=== PATIENT | male | born 1935 | race Caucasian/White ===

== ENCOUNTER 2017-01-31 13:32 | Emergency (ER) | payer MEDICARE, BC ==
[2017-01-31 13:47] VITALS: BP 164/86
--- NOTE | 2017-01-31 14:11 | ER Document Report ---
ED Medical Screen (RME) - General Chief Complaint: Fall Stated Complaint: FALL, HEAD INJURY Time Seen by Provider: 01/31/17 13:53 Mode of Arrival: Wheelchair Information source: Patient Notes: This is an 81-year-old man accompanied by his who is brought to the emergency room after falling and hitting his head at noon at home. Only ambulates with a Rollator and fell backwards. He denies any loss of consciousness. He was able to be helped back to the Rollator and was able to bear weight with a Rollator after the fall. He presents because of a contusion to the back of the head. He does state he is feeling better than he felt when he fell. He denies any headache at this time. He does have a history of subdural hematoma and has had a craniotomy in the past. TRAVEL OUTSIDE OF THE [place] IN LAST 30 DAYS: No - Related Data Allergies/Adverse Reactions: Sulfa (Sulfonamide Antibiotics) Allergy (Intermediate, Verified 06/09/12 18:23) Chest pain Past Medical History - Social History Chew tobacco use (# tins/day): No Frequency of alcohol use: None Drug Abuse: None - Past Medical History Cardiac Medical History: Reports: Hx Hypercholesterolemia, Hx Hypertension Denies: Hx Heart Attack Pulmonary Medical History: Denies: Hx Asthma Neurological Medical History: Denies: Hx Cerebrovascular Accident, Hx Seizures Renal/ Medical History: Denies: Hx Peritoneal Dialysis GI Medical History: Reports: Hx Crohn's Disease, Hx Gastroesophageal Reflux Disease. Denies: Hx Hepatitis, Hx Hiatal Hernia, Hx Ulcer Infectious Medical History: Denies: Hx Hepatitis Past Surgical History: Reports: Hx Neurologic Surgery, Hx Orthopedic Surgery - laminectomy,. Denies: Hx Open Heart Surgery, Hx Pacemaker - Immunizations Hx Diphtheria, Pertussis, Tetanus Vaccination: Yes History of Influenza Vaccine for 01/2017 - 06/2017 Season: No Physical Exam - Vital signs Vitals: Temp Pulse Resp BP Pulse Ox 97.8 F 75 16 164/86 H 98 01/31/17 13:46 01/31/17 13:46 01/31/17 13:46 01/31/17 13:46 01/31/17 13:46 Course - Vital Signs Vital signs: Temp Pulse Resp BP Pulse Ox 97.8 F 75 16 164/86 H 98 01/31/17 13:46 01/31/17 13:46 01/31/17 13:46 01/31/17 13:46 01/31/17 13:46
--- NOTE | 2017-01-31 14:43 | RADIOLOGY REPORT (SQ) ---
EXAM DESCRIPTION: CT HEAD WITHOUT COMPLETED DATE/TIME: 01/31/2017 2:26 pm REASON FOR STUDY: cedric villegas head COMPARISON: 06/15/2015 TECHNIQUE: Axial images acquired through the brain without intravenous contrast. Images reviewed wi th bone, brain and subdural windows. Images stored on PACS. All CT scanners at this facility use dose modulation, iterative reconstruction, and/or weight based d osing when appropriate to reduce radiation dose to as low as reasonably achievable (ALARA). [facility]: Dose Right [facility]: CareDose [facility]: Dose Right [facility]: Teradose 4D [facility]: Smart [employer] RADIATION DOSE: Up-to-date CT equipment and radiation dose reduction techniques were employed. CTDIv ol: 64.6 mGy. DLP: 1163 mGy-cm.mGy. LIMITATIONS: Motion. FINDINGS: VENTRICLES: Prominent. CEREBRUM: No masses. No hemorrhage. No midline shift. Encephalomalacia adjacent to right frontal c raniotomy, stable. Areas of low density in the white matter most likely due to chronic micro-vascula r ischemic change. No evidence for acute infarction. CEREBELLUM: No masses. No hemorrhage. No alteration of density. No evidence for acute infarction. EXTRAAXIAL SPACES: Age-related involutional change. No fluid collections. No masses. ORBITS AND GLOBE: No intra- or extraconal masses. Normal contour of globe without masses. CALVARIUM: Right frontal craniotomy. PARANASAL SINUSES: No fluid or mucosal thickening. SOFT TISSUES: No mass or hematoma. OTHER: No other significant finding. IMPRESSION: Stable, chronic changes. EVIDENCE OF ACUTE STROKE: NO. TECHNICAL DOCUMENTATION: JOB ID: [id number] Quality ID # [id number]: Final reports with documentation of one or more dose reduction techniques (e.g., Au tomated exposure control, adjustment of the mA and/or kV according to patient size, use of iterative reconstruction technique) 2010 [employer]- All Rights Reserved
--- NOTE | 2017-01-31 14:45 | RADIOLOGY REPORT (SQ) ---
EXAM DESCRIPTION: CT CERVICAL SPINE WITHOUT COMPLETED DATE/TIME: 01/31/2017 2:26 pm REASON FOR STUDY: fell hit head COMPARISON: None. TECHNIQUE: Axial images acquired through the cervical spine without intravenous contrast. Images re viewed with lung, soft tissue and bone windows. Reconstructed coronal and sagittal MPR images review ed. Images stored on PACS. All CT scanners at this facility use dose modulation, iterative reconstruction, and/or weight based d osing when appropriate to reduce radiation dose to as low as reasonably achievable (ALARA). [facility]: Dose Right [facility]: CareDose [facility]: Dose Right [facility]: Teradose 4D [facility]: Smart [employer] RADIATION DOSE: Up-to-date CT equipment and radiation dose reduction techniques were employed. CTDIv ol: 16.7 mGy. DLP: 298 mGy-cm. mGy. LIMITATIONS: Motion. FINDINGS: ALIGNMENT: Anatomic. MINERALIZATION: Normal. VERTEBRAL BODIES: Defects in the posterior arches of C1 and C2 and the foramen magnum. DISCS: Multilevel disc space narrowing with osteophytes. FACETS, LATERAL MASSES, POSTERIOR ELEMENTS: Facet arthropathy. No fractures. No dislocation. No ac [place] findings. HARDWARE: None in the spine. VISUALIZED RIBS: No fractures. LUNG APICES AND SOFT TISSUES: No significant or acute findings. OTHER: No other significant finding. IMPRESSION: Chronic postsurgical and degenerative changes. TECHNICAL DOCUMENTATION: JOB ID: [id number] Quality ID # [id number]: Final reports with documentation of one or more dose reduction techniques (e.g., Au tomated exposure control, adjustment of the mA and/or kV according to patient size, use of iterative reconstruction technique) 2010 [employer]- All Rights Reserved
--- NOTE | 2017-01-31 15:36 | RADIOLOGY REPORT (SQ) ---
EXAM DESCRIPTION: SHOULDER RIGHT 2 OR MORE VIEWS COMPLETED DATE/TIME: 01/31/2017 3:26 pm REASON FOR STUDY: right shoulder pain s/p fall COMPARISON: 06/15/2015 NUMBER OF VIEWS: Three views. TECHNIQUE: Internal rotation, external rotation, and Y view images acquired of the right shoulder. LIMITATIONS: None. FINDINGS: MINERALIZATION: Osteopenia. BONES: Old fracture of the clavicle. No acute fracture or dislocation. No worrisome bone lesions. JOINTS: No dislocation. VISUALIZED LUNGS AND RIBS: No pneumothorax. No rib fracture. SOFT TISSUES: No radiopaque foreign body. OTHER: No other significant finding. IMPRESSION: NO RADIOGRAPHIC EVIDENCE OF ACUTE INJURY. TECHNICAL DOCUMENTATION: JOB ID: [id number] [employer]- All Rights Reserved
--- NOTE | 2017-01-31 15:59 | ER Document Report ---
ED General - General Chief Complaint: Fall Stated Complaint: FALL, HEAD INJURY Time Seen by Provider: 01/31/17 13:53 Mode of Arrival: Wheelchair Information source: Patient, Relative Notes: This is an 81-year-old man with a history of a subdural hematoma in the past, neck surgery in the past, ambulates with a Rollator and assistance. He presented to the emergency room after a fall at noon today. Patient did fall back after losing his balance and hit his head. There was no loss of consciousness. Patient states he actually feels better and denies headache at this time. TRAVEL OUTSIDE OF THE [place] IN LAST 30 DAYS: No - HPI Onset: This afternoon Onset/Duration: Sudden Quality of pain: No pain Severity: None Pain Level: Denies Associated symptoms: denies: Chills, Fever Relieved by: Denies - Related Data Allergies/Adverse Reactions: Sulfa (Sulfonamide Antibiotics) Allergy (Intermediate, Verified 06/09/12 18:23) Chest pain Past Medical History - General Information source: Patient - Social History Smoking Status: Never Smoker Chew tobacco use (# tins/day): No Frequency of alcohol use: None Drug Abuse: None Family History: Reviewed & Not Pertinent Patient has suicidal ideation: No - Past Medical History Cardiac Medical History: Reports: Hx Hypercholesterolemia, Hx Hypertension Denies: Hx Heart Attack Pulmonary Medical History: Denies: Hx Asthma Neurological Medical History: Denies: Hx Cerebrovascular Accident, Hx Seizures Renal/ Medical History: Denies: Hx Peritoneal Dialysis GI Medical History: Reports: Hx Crohn's Disease, Hx Gastroesophageal Reflux Disease. Denies: Hx Hepatitis, Hx Hiatal Hernia, Hx Ulcer Infectious Medical History: Denies: Hx Hepatitis Past Surgical History: Reports: Hx Neurologic Surgery, Hx Orthopedic Surgery - laminectomy,. Denies: Hx Open Heart Surgery, Hx Pacemaker - Immunizations Hx Diphtheria, Pertussis, Tetanus Vaccination: Yes Review of Systems - Review of Systems Constitutional: No symptoms reported EENT: No symptoms reported Cardiovascular: No symptoms reported Respiratory: No symptoms reported Gastrointestinal: No symptoms reported Genitourinary: No symptoms reported Male Genitourinary: No symptoms reported Musculoskeletal: See HPI Skin: No symptoms reported Hematologic/Lymphatic: No symptoms reported Neurological/Psychological: No symptoms reported Physical Exam - Vital signs Vitals: Temp Pulse Resp BP Pulse Ox 97.8 F 75 16 164/86 H 98 01/31/17 13:46 01/31/17 13:46 01/31/17 13:46 01/31/17 13:46 01/31/17 13:46 Notes: Physical exam: GENERAL: 81-year-old man, alert and oriented 3, no acute distress HEAD: Patient does have a contusion in the occipital area of the scalp. There is no crepitus over the bone. EYES: Chronic right lid lag. ENT: Moist mucous membranes. NECK: Patient has limited range of motion of the neck chronically after surgery , no significant tenderness. LUNGS: Breath sounds clear to auscultation bilaterally and equal. No wheezes rales or rhonchi. HEART: Regular rate and rhythm without murmurs, rubs or gallops. ABDOMEN: Soft, normoactive bowel sounds. No tenderness to palpation. No guarding, no rebound. No masses appreciated. EXTREMITIES: Patient has debilitating arthritis and has significantly reduced range of motion of all extremities. He is at his baseline. NEUROLOGICAL: Cranial nerves II through XII grossly intact. Normal speech, moving all extremities. His mentation is quite clear. PSYCH: Normal mood, normal affect. SKIN: Contusion is noted to the scalp. Course - Re-evaluation Re-evalutation: 01/31/17 16:22 Patient looks good and was without complaints. He is a fall risk. I have spoken to the family and the patient detail. He would like to go home. I did let them know that there is a chance of delayed bleeding (there always is after this type of injury) and I have encouraged them that if there is any concerns for headache or changes in mental status, to return to the emergency room at once. - Vital Signs Vital signs: Temp Pulse Resp BP Pulse Ox 97.8 F 75 16 164/86 H 98 01/31/17 13:46 01/31/17 13:46 01/31/17 13:46 01/31/17 13:46 01/31/17 13:46 - Diagnostic Test Radiology reviewed: Image reviewed, Reports reviewed - CT of the head shows no bleed. CT of the cervical spine shows no acute fracture (chronic postsurgical changes). X-rays of the shoulder show no fracture. Discharge - Discharge Clinical Impression: Contusion head, Concussion mild, Contusion to the right shoulder. Condition: Stable Disposition: HOME, SELF-CARE Additional Instructions: As we discussed, the CT of the head showed no bleed. The CT of the neck show no bony injuries. The x-rays of the shoulder showed no fracture. Take it easy over the next few days. Return to the emergency room for worsening headache, nausea or vomiting or any mental status changes. Thank you for choosing [facility] for your care. The examination and treatment you have received in the Emergency Department today has been rendered on an emergency basis only and is not intended to be a substitute for complete medical care. You should contact your follow-up physician as it is important that he or she examine you for any new or remaining problems. If given a copy of any lab tests or radiology reports, please bring them with you when you see your physician. If your problem worsens or new symptoms appear and you are unable to arrange prompt follow-up care, return to the Emergency Department. Specific signs to look out for: Worsening headache, changes in mental status Any other instructions: Continue current medicines. Return to the emergency room tomorrow if any concerns. Referrals: ALFIE HAN MD [Primary Care Provider] - Follow up as needed
== END 2017-01-31 16:10 | disposition home or self-care (01) ==
LOC: ER 13:32
DX: W19.XXXA Unspecified fall, initial encounter (principal); S00.03XA Contusion of scalp, initial encounter; S40.011A Contusion of right shoulder, initial encounter; S06.0X0A Concussion without loss of consciousness, initial encounter; Z88.2 Allergy status to sulfonamides; I10 Essential (primary) hypertension; M19.90 Unspecified osteoarthritis, unspecified site
CPT/HCPCS: 70450; 72125; 99284

== ENCOUNTER 2018-07-27 14:00 | Emergency (ER) | payer MEDICARE, BC ==
[2018-07-27 14:19] VITALS: BP 116/96
--- NOTE | 2018-07-27 15:27 | ER Document Report ---
ED Medical Screen (RME) - General Chief Complaint: Urinary Problem Stated Complaint: PAINFUL URINATION,URGENCY Time Seen by Provider: 07/27/18 15:18 Primary Care Provider: ALFIE HAN MD [Primary Care Provider] - Follow up as needed Notes: Patient is a 83-year-old male that presents to the emergency department for chief complaint of dysuria and urinary frequency. Is been having worsening symptoms over the past several days. States she is been going more frequently 4 times at least today, usually does not go that much, he has not been drinking as much water recently, he was holding on the fluid over the past weekend, and he was given Lasix by his family, but they are worried maybe he got too dehydrated ROS: Other than noted above, the 12 point review of systems was reviewed with the patient and were negative, all pertinent findings are included in the HPI. PHYSICAL EXAMINATION: Vital signs reviewed. GENERAL: Elderly male, no acute distress HEAD: Atraumatic, normocephalic. EYES: Pupils equal round extraocular movements intact, conjunctiva are normal. ENT: Nares patent NECK: Normal range of motion CV: Heart regular rate and rhythm LUNGS: No respiratory distress Musculoskeletal: Nontender extremities NEUROLOGICAL: Normal speech PSYCH: Normal mood, normal affect. MDM: Patient seen and examined for rapid initial assessment. Vital signs reviewed. A comprehensive ED assessment and evaluation of the patient, analysis of test results and completion of the medical decision making process will be conducted by additional ED providers. *Note is created using voice recognition software and may contain spelling, syntax or grammatical errors. TRAVEL OUTSIDE OF THE [place] IN LAST 30 DAYS: No - Related Data Allergies/Adverse Reactions: Sulfa (Sulfonamide Antibiotics) Allergy (Intermediate, Verified 07/27/18 14:08) Chest pain Past Medical History - Past Medical History Cardiac Medical History: Reports: Hx Hypercholesterolemia, Hx Hypertension Denies: Hx Heart Attack Pulmonary Medical History: Denies: Hx Asthma Neurological Medical History: Denies: Hx Cerebrovascular Accident, Hx Seizures Renal/ Medical History: Denies: Hx Peritoneal Dialysis GI Medical History: Reports: Hx Crohn's Disease, Hx Gastroesophageal Reflux Disease. Denies: Hx Hepatitis, Hx Hiatal Hernia, Hx Ulcer Infectious Medical History: Denies: Hx Hepatitis Past Surgical History: Reports: Hx Neurologic Surgery, Hx Orthopedic Surgery - laminectomy,. Denies: Hx Open Heart Surgery, Hx Pacemaker - Immunizations Hx Diphtheria, Pertussis, Tetanus Vaccination: Yes History of Influenza Vaccine for 01/2017 - 06/2017 Season: No Physical Exam - Vital signs Vitals: Temp Pulse Resp BP Pulse Ox 97.7 F 68 20 116/96 H 95 07/27/18 14:18 07/27/18 14:18 07/27/18 14:18 07/27/18 14:18 07/27/18 14:18 Course - Vital Signs Vital signs: Temp Pulse Resp BP Pulse Ox 97.7 F 68 20 116/96 H 95 07/27/18 14:18 07/27/18 14:18 07/27/18 14:18 07/27/18 14:18 07/27/18 14:18 Doctor's Discharge - Discharge Referrals: ALFIE HAN MD [Primary Care Provider] - Follow up as needed
[2018-07-27 16:12] LABS: ABSOLUTE EOSINOPHILS # (AUTO) 0.1 10^3/uL (0.0-0.6); ABSOLUTE LYMPHOCYTES (AUTO) 1.4 10^3/uL (0.5-4.7); ABSOLUTE MONOCYTES (AUTO) 0.5 10^3/uL (0.1-1.4); ABSOLUTE NEUT (AUTO) 5.2 10^3/uL (1.7-8.2); BASOPHILS % (AUTO) 0.5 % (0-2); HEMATOCRIT 42.1 % (37.9-51.0); HEMOGLOBIN 13.9 g/dL (13.5-17.0); MEAN CORPUSCULAR VOLUME 88 fl (80-97); MONOCYTES % (AUTO) 6.8 % (3-13); PLATELET COUNT 188 10^3/uL (150-450); RED BLOOD COUNT 4.78 10^6/uL (4.35-5.55); RED CELL DISTRIBUTION WIDTH 15.4 % (11.5-14.0); SEGMENTED NEUTROPHILS % (AUTO) 71.7 % (42-78); TOTAL CELLS COUNTED % (AUTO) 100 %; WHITE BLOOD COUNT 7.2 10^3/uL (4.0-10.5)
[2018-07-27 16:27] LABS: ALANINE AMINOTRANSFERASE 24 U/L (21-72); ALBUMIN 4.2 g/dL (3.5-5.0); ALKALINE PHOSPHATASE 71 U/L (38-126); ANION GAP 9 (5-19); ASPARTATE AMINO TRANSFERASE 18 U/L (17-59); BILIRUBIN,TOTAL 0.4 mg/dL (0.2-1.3); BLOOD UREA NITROGEN 21 mg/dL (7-20); CALCIUM 9.4 mg/dL (8.4-10.2); CARBON DIOXIDE 30 mmol/L (22-30); CHLORIDE 101 mmol/L (98-107); GLUCOSE 85 mg/dL (75-110); POTASSIUM 4.8 mmol/L (3.6-5.0); SODIUM 139.7 mmol/L (137-145); TOTAL PROTEIN 7.5 g/dL (6.3-8.2)
[2018-07-27] MEDS ORDERED: NORMAL SALINE 1000 ML 1,000 ML IV ONE (16:53)
--- NOTE | 2018-07-27 16:54 | ER Document Report ---
ED General - General Chief Complaint: Urinary Problem Stated Complaint: PAINFUL URINATION,URGENCY Time Seen by Provider: 07/27/18 15:18 Primary Care Provider: ALFIE HAN MD [Primary Care Provider] - Follow up as needed TRAVEL OUTSIDE OF THE [place] IN LAST 30 DAYS: No - HPI Notes: Patient is a 83-year-old male that presents to the emergency department for chief complaint of urinary frequency and dysuria. Patient reports history of frequent urinary tract infections. He did complete a course of antibiotics and had reported resolution of his UTI last . He states on Tuesday he began having urinary frequency and dysuria again. He reports Azo has improved his symptoms today. He denies any associated fever, chills, nausea or vomiting. He states he has been drinking cranberry juice and water trying to stay hydrated. Patient has an appointment Tuesday with his primary care doctor but did not feel he could wait that long if he needed more antibiotics. He denies any hematuria or abdominal pain. Past Medical History: Reviewed in chart Past Surgical History: Reviewed in chart Social History: Denies drugs alcohol and tobacco Family History: Reviewed and noncontributory for presenting illness Allergies: Reviewed, see documented allergy list. REVIEW OF SYSTEMS: CONSTITUTIONAL : No fever No chills No diaphoresis No recent illness EENT: No vision changes No congestion No sore throat CARDIOVASCULAR: No chest pain No palpitations RESPIRATORY: No shortness of breath No cough No difficulty breathing GASTROINTESTINAL: No abdominal pain No nausea No vomiting No diarrhea GENITOURINARY: dysuria Urinary frequency No hematuria No difficulty urinating MUSCULOSKELETAL: No back pain No leg pain No arm pain SKIN: No rashes No lesions LYMPHATIC: No swollen, enlarged glands. NEUROLOGICAL: No lightheadedness No headache No weakness No paresthesias PSYCHIATRIC: No anxiety No depression PHYSICAL EXAMINATION: Vital signs reviewed, nursing noted reviewed. GENERAL: Well-appearing, well-nourished and in no acute distress. HEAD: Atraumatic, normocephalic. EYES: Eyes appear normal, extraocular movements intact, sclera anicteric, conjunctiva are normal. ENT: nares patent, oropharynx clear without exudates. Moist mucous membranes. NECK: Normal range of motion, supple without lymphadenopathy LUNGS: Breath sounds clear to auscultation bilaterally and equal. No wheezes rales or rhonchi. HEART: Regular rate and rhythm without murmurs ABDOMEN: Soft, nontender, normoactive bowel sounds. No rebound, guarding, or rigidity. No masses appreciated. EXTREMITIES: Nontender, good range of motion, no pitting or edema. NEUROLOGICAL: No focal neurological deficits. Moves all extremities spontaneousl y Motor and sensory grossly intact on exam. PSYCH: Normal mood, normal affect. SKIN: Warm, Dry, normal turgor, no rashes or lesions noted on exposed skin - Related Data Allergies/Adverse Reactions: Sulfa (Sulfonamide Antibiotics) Allergy (Intermediate, Verified 07/27/18 14:08) Chest pain Past Medical History - Social History Smoking Status: Never Smoker Family History: Reviewed & Not Pertinent Patient has suicidal ideation: No Patient has homicidal ideation: No - Past Medical History Cardiac Medical History: Reports: Hx Hypercholesterolemia, Hx Hypertension Denies: Hx Heart Attack Pulmonary Medical History: Denies: Hx Asthma Neurological Medical History: Denies: Hx Cerebrovascular Accident, Hx Seizures Renal/ Medical History: Denies: Hx Peritoneal Dialysis GI Medical History: Reports: Hx Crohn's Disease, Hx Gastroesophageal Reflux Disease. Denies: Hx Hepatitis, Hx Hiatal Hernia, Hx Ulcer Infectious Medical History: Denies: Hx Hepatitis Past Surgical History: Reports: Hx Neurologic Surgery, Hx Orthopedic Surgery - laminectomy,. Denies: Hx Open Heart Surgery, Hx Pacemaker - Immunizations Hx Diphtheria, Pertussis, Tetanus Vaccination: Yes Physical Exam - Vital signs Vitals: Temp Pulse Resp BP Pulse Ox 97.7 F 68 20 116/96 H 95 07/27/18 14:18 07/27/18 14:18 07/27/18 14:18 07/27/18 14:18 07/27/18 14:18 Course - Re-evaluation Re-evalutation: 07/27/18 16:59 Vitals reviewed. Nursing notes reviewed. Patient is well-appearing and in no acute distress. He has no leukocytosis or signs of sepsis. His BUN is slightly elevated with normal creatinine. He has no electrolyte derangement. Patient was given IV hydration. 07/27/18 17:39 Patient's urinalysis is positive for infection. He will be given a dose of IV Rocephin in the ER for the reoccurrence of his UTI and will be started on Keflex. He has an appointment on Tuesday with his PCP which he will keep for reevaluation. He will return to the emergency room think symptoms. He is stable at time of discharge. Laboratory 07/27/18 07/27/18 07/27/18 15:33 15:33 16:35 WBC 7.2 RBC 4.78 Hgb 13.9 Hct 42.1 MCV 88 MCH 29.0 MCHC 33.0 RDW 15.4 H Plt Count 188 Seg Neutrophils % 71.7 Lymphocytes % 20.0 Monocytes % 6.8 Eosinophils % 1.0 Basophils % 0.5 Absolute Neutrophils 5.2 Absolute Lymphocytes 1.4 Absolute Monocytes 0.5 Absolute Eosinophils 0.1 Absolute Basophils 0.0 Sodium 139.7 Potassium 4.8 Chloride 101 Carbon Dioxide 30 Anion Gap 9 BUN 21 H Creatinine 0.67 Est GFR ( Amer) > 60 Est GFR (Non-Af Amer) > 60 Glucose 85 Calcium 9.4 Total Bilirubin 0.4 Direct Bilirubin 0.0 Neonat Total Bilirubin Not Reportable Neonat Direct Bilirubin Not Reportable Neonat Indirect Bili Not Reportable AST 18 ALT 24 Alkaline Phosphatase 71 Total Protein 7.5 Albumin 4.2 Urine Color AKOSUA Urine Appearance CLEAR Urine pH 5.0 Ur Specific [place] 1.012 Urine Protein NEGATIVE Urine Glucose (UA) NEGATIVE Urine Ketones NEGATIVE Urine Blood SMALL H Urine Nitrite POSITIVE H Urine Bilirubin NEGATIVE Urine Urobilinogen 4.0 H Ur Leukocyte Esterase SMALL H Urine WBC (Auto) 103 Urine RBC (Auto) 3 U Hyaline Cast (Auto) 2 Urine Bacteria (Auto) 2+ Squamous Epi Cells Auto 1 Urine Mucus (Auto) RARE Urine Ascorbic Acid NEGATIVE - Vital Signs Vital signs: Temp Pulse Resp BP Pulse Ox 97.7 F 68 20 116/96 H 95 07/27/18 14:18 07/27/18 14:18 07/27/18 14:18 07/27/18 14:18 07/27/18 14:18 - Laboratory Result Diagrams: 07/27/18 15:33 07/27/18 15:33 Laboratory results interpreted by me: 07/27/18 07/27/18 07/27/18 15:33 15:33 16:35 RDW 15.4 H BUN 21 H Urine Blood SMALL H Urine Nitrite POSITIVE H Urine Urobilinogen 4.0 H Ur Leukocyte Esterase SMALL H Discharge - Discharge Clinical Impression: Acute urinary tract infection Condition: Stable Disposition: HOME, SELF-CARE Instructions: Urinary Tract Infection ([facility]) Additional Instructions: Please return to the emergency department if you have any worsening, or concern of your symptoms. Please return to the emergency department if you develop chest pain, difficulty breathing, severe abdominal pain, or ongoing vomiting. Please follow-up with your primary care physician in 2-3 days and any other recommended physicians. If prescribed, take all medications as directed. If you have any questions or concerns do not hesitate to return the emergency department for evaluation. [] Prescriptions: Cephalexin Monohydrate [Keflex 500 mg Capsule] 500 mg PO Q6H 7 Days capsule Referrals: ALFIE HAN MD [Primary Care Provider] - Follow up in 3-5 days
[2018-07-27 17:07] LABS: APPEARANCE,URINE CLEAR; BILIRUBIN,URINE NEGATIVE (NEGATIVE); COLOR,URINE AMBER; GLUCOSE, URINE NEGATIVE (NEGATIVE); KETONES,URINE NEGATIVE (NEGATIVE); LEUKOCYTE ESTERASE,URINE SMALL (NEGATIVE); NITRITE,URINE POSITIVE (NEGATIVE); PROTEIN,URINE NEGATIVE (NEGATIVE); URINE SPECIFIC GRAVITY 1.012
[2018-07-27] MEDS ORDERED: CEFTRIAXONE INJ 1000 MG VIAL IV ONE (17:36)
== END 2018-07-27 18:58 | disposition home or self-care (01) ==
LOC: ER 14:00
DX: N39.0 Urinary tract infection, site not specified (principal); R35.0 Frequency of micturition; R30.0 Dysuria; I10 Essential (primary) hypertension
CPT/HCPCS: 99283; 96361; 96365; 36415; 87086; 85025; 87088; 80053; 81001; 87186; J0696; J7030

== ENCOUNTER 2019-12-20 18:05 | Inpatient (IN) | payer MEDICARE, BC ==
[2019-12-20 18:41] LABS: ABSOLUTE BASOPHILS # (AUTO) 0.1 10^3/uL (0.0-0.2); ABSOLUTE EOSINOPHILS # (AUTO) 0.2 10^3/uL (0.0-0.6); ABSOLUTE LYMPHOCYTES (AUTO) 2.1 10^3/uL (0.5-4.7); ABSOLUTE MONOCYTES (AUTO) 0.6 10^3/uL (0.1-1.4); ABSOLUTE NEUT (AUTO) 4.8 10^3/uL (1.7-8.2); BASOPHILS % (AUTO) 0.7 % (0-2); HEMATOCRIT 41.7 % (37.9-51.0); HEMOGLOBIN 13.7 g/dL (13.5-17.0); LYMPHOCYTES % (AUTO) 27.6 % (13-45); MEAN CORPUSCULAR HEMOGLOBIN 29.3 pg (27.0-33.4); MEAN CORPUSCULAR HGB CONC 32.9 g/dL (32.0-36.0); MEAN CORPUSCULAR VOLUME 89 fl (80-97); MONOCYTES % (AUTO) 7.6 % (3-13); PLATELET COUNT 153 10^3/uL (150-450); RED BLOOD COUNT 4.68 10^6/uL (4.35-5.55); RED CELL DISTRIBUTION WIDTH 15.2 % (11.5-14.0); SEGMENTED NEUTROPHILS % (AUTO) 62.1 % (42-78); TOTAL CELLS COUNTED % (AUTO) 100 %; WHITE BLOOD COUNT 7.7 10^3/uL (4.0-10.5)
--- NOTE | 2019-12-20 19:07 | RADIOLOGY REPORT (SQ) ---
EXAM DESCRIPTION: ANKLE LEFT COMPLETE IMAGES COMPLETED DATE/TIME: 12/20/2019 6:57 pm REASON FOR STUDY: injury COMPARISON: None. NUMBER OF VIEWS: Three views. TECHNIQUE: AP, lateral, and oblique radiographic images acquired of the left ankle. LIMITATIONS: None. FINDINGS: MINERALIZATION: Normal. BONES: Spiral fracture of the distal fibula at the level of the syndesmosis. Curvilinear fragment me dial to the medial malleolus most likely artifact or remote trauma. JOINTS: Intact. SOFT TISSUES: No foreign body. OTHER: No other significant finding. IMPRESSION: Fracture distal fibula. TECHNICAL DOCUMENTATION: JOB ID: [id number] 2010 [email or web address]- All Rights Reserved Reading location - IP/workstation name: [email or web address]
[2019-12-20 19:45] LABS: ALBUMIN 4.1 g/dL (3.5-5.0); ALKALINE PHOSPHATASE 49 U/L (38-126); ANION GAP 10 (5-19); ASPARTATE AMINO TRANSFERASE 24 U/L (17-59); BILIRUBIN,DIRECT 0.1 mg/dL (0.0-0.4); BILIRUBIN,TOTAL 0.6 mg/dL (0.2-1.3); BLOOD UREA NITROGEN 47 mg/dL (7-20); CALCIUM 8.4 mg/dL (8.4-10.2); CARBON DIOXIDE 25 mmol/L (22-30); CHLORIDE 102 mmol/L (98-107); GLUCOSE 97 mg/dL (75-110); POTASSIUM 5.3 mmol/L (3.6-5.0); TOTAL PROTEIN 7.3 g/dL (6.3-8.2)
--- NOTE | 2019-12-20 20:08 | ER Document Report ---
ED General - General Chief Complaint: Ankle Injury Stated Complaint: ANKLE SWELLING Primary Care Provider: ALFIE HAN MD [Primary Care Provider] - Follow up as needed Mode of Arrival: Medic Information source: Patient, Friend Notes: Patient is an 84-year-old male presenting to the emergency department chief complaint of left lower extremity pain status post fall. Patient states that he was getting out of his chair yesterday slipped and fell twisting his left ankle. Patient denies chest pain shortness of breath or palpitations prior to the fall. Patient has no other complaints at this time. TRAVEL OUTSIDE OF THE [place] IN LAST 30 DAYS: No - HPI Onset: Yesterday Onset/Duration: Sudden Quality of pain: Throbbing Severity: Moderate Pain Level: 3 Associated symptoms: None Exacerbated by: Standing, Movement, Walking Relieved by: Denies Similar symptoms previously: No Recently seen / treated by doctor: No - Related Data Allergies/Adverse Reactions: Sulfa (Sulfonamide Antibiotics) Allergy (Intermediate, Verified 07/27/18 14:08) Chest pain Past Medical History - General Information source: Patient - Social History Smoking Status: Former Smoker Chew tobacco use (# tins/day): No Frequency of alcohol use: None Drug Abuse: None Lives with: Spouse/Significant other Family History: Reviewed & Not Pertinent Patient has suicidal ideation: No Patient has homicidal ideation: No - Past Medical History Cardiac Medical History: Reports: Hx Hypercholesterolemia, Hx Hypertension Denies: Hx Heart Attack Pulmonary Medical History: Denies: Hx Asthma Neurological Medical History: Reports: Other - 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 Denies: Hx Cerebrovascular Accident, Hx Seizures Renal/ Medical History: Denies: Hx Peritoneal Dialysis GI Medical History: Reports: Hx Crohn's Disease, Hx Gastroesophageal Reflux Disease. Denies: Hx Hepatitis, Hx Hiatal Hernia, Hx Ulcer Infectious Medical History: Denies: Hx Hepatitis Past Surgical History: Reports: Hx Neurologic Surgery, Hx Orthopedic Surgery - laminectomy,. Denies: Hx Open Heart Surgery, Hx Pacemaker - Immunizations Hx Diphtheria, Pertussis, Tetanus Vaccination: Yes Review of Systems - Review of Systems Constitutional: No symptoms reported EENT: No symptoms reported Cardiovascular: No symptoms reported Respiratory: No symptoms reported Gastrointestinal: No symptoms reported Genitourinary: No symptoms reported Male Genitourinary: No symptoms reported Musculoskeletal: See HPI Skin: No symptoms reported Hematologic/Lymphatic: No symptoms reported Neurological/Psychological: No symptoms reported Physical Exam - Vital signs Vitals: Temp Pulse Resp BP Pulse Ox 98.8 F 76 17 131/57 H 99 12/20/19 18:25 12/20/19 18:25 12/20/19 18:25 12/20/19 18:25 12/20/19 18:25 - Notes Notes: PHYSICAL EXAMINATION: GENERAL: Well-appearing, well-nourished and in no acute distress. HEAD: Atraumatic, normocephalic. EYES: Pupils equal round and reactive to light, extraocular movements intact, sclera anicteric, conjunctiva are normal. ENT: nares patent, oropharynx clear without exudates. Moist mucous membranes. NECK: Normal range of motion, supple without lymphadenopathy, no appreciable JVD LUNGS: Lungs clear to auscultation bilaterally and equal. No wheezes rales or rhonchi. HEART: Regular rate and rhythm without murmurs ABDOMEN: Soft, nontender, normal bowel sounds. No guarding, no rebound. No masses appreciated. EXTREMITIES: Full range of motion to the bilateral upper extremities 2+ pulses, lower extremity right sided range of motion is adequate and at baseline left foot and ankle are swollen and ecchymotic tenderness to the lateral aspect. NEUROLOGICAL: No focal neurological deficits. Moves all extremities spontaneously and on command. Patient at baseline SKIN: Warm, Dry, and intact. Normal turgor, no rashes or lesions noted. Course - Re-evaluation Re-evalutation: 12/20/19 20:05 I discussed the findings with the patient and his caregiver there is no possibility of the patient going home at this time because of ambulatory dysfunction and no one at home strong enough to help him. I did speak with the orthopedic surgeon on-call Dr. Felipe who states that he will evaluate the patient and discuss treatment options in the morning. I spoken with the hospitalist and they are agreeable with admission. Presurgical labs EKG and chest x-ray have been ordered. - Vital Signs Vital signs: Temp Pulse Resp BP Pulse Ox 98.8 F 76 17 131/57 H 99 12/20/19 18:25 12/20/19 18:25 12/20/19 18:25 12/20/19 18:25 12/20/19 18:25 - Laboratory Result Diagrams: 12/20/19 18:10 12/20/19 18:10 Laboratory results interpreted by me: 12/20/19 12/20/19 18:10 18:10 RDW 15.2 H Sodium 136.9 L Potassium 5.3 H BUN 47 H - Diagnostic Test Radiology reviewed: Reports reviewed Discharge - Discharge Clinical Impression: Accidental fall Qualifiers: Encounter type: initial encounter Qualified Code(s): W19.XXXA - Unspecified fall, initial encounter Closed fracture of left distal fibula Qualifiers: Encounter type: initial encounter Fracture morphology: other fracture Qualified Code(s): S82.832A - Other fracture of upper and lower end of left fibula, initial encounter for closed fracture Condition: Stable Disposition: ADMITTED OBSERVATION Admitting Provider: Davina (Hospitalist) Unit Admitted: Medical Floor Referrals: ALFIE HAN MD [Primary Care Provider] - Follow up as needed
[2019-12-20] MEDS ORDERED: ONDANSETRON HCL INJ/PF 4 MG/2 ML SDV IV PRN (20:35)
[2019-12-20] MEDS ORDERED: DEXTROSE 40% GEL 15 GM TUBE PO PRN ×2 (20:35)
[2019-12-20] MEDS ORDERED: DEXTROSE 50%-WATER 25 GM/50 ML DISP.SYRIN IV PRN ×2 (20:35)
[2019-12-20] MEDS ORDERED: GLUCAGON,HUMAN RECOMB 1 MG INJ IM PRN (20:35)
--- NOTE | 2019-12-20 20:36 | RADIOLOGY REPORT (SQ) ---
EXAM DESCRIPTION: XR CHEST 1 VIEW COMPLETED DATE/TME: 12/20/2019 19:25 CLINICAL HISTORY: 84 years, Male, pre op COMPARISON: Chest x-ray 06/05/2012 TECHNIQUE: Upright portable chest x-ray FINDINGS: Mild cardiomegaly. Mildly ectatic aorta. Elevation of right hemidiaphragm. Hyperinflation. No acute lung or pleural abnormalities. IMPRESSION: No change in appearance since 2012. No acute findings.
[2019-12-20] MEDS ORDERED: LEVALBUTEROL HCL NEB 0.63 MG/3 ML AMPUL NEB PRN (20:43)
[2019-12-20] MEDS ORDERED: MORPHINE SULFATE 10 MG/ML INJ IV PRN ×3 (20:43→20:54)
[2019-12-20] MEDS ORDERED: ACETAMINOPHEN 650 MG SUPP.RECT PR PRN (20:43)
[2019-12-20] MEDS: HEPARIN SOD (PORCINE) 5,000 UNIT/ML 1 ML VIAL SUBCUT SCH (22:00)
[2019-12-20 22:20] LABS: APPEARANCE,URINE CLEAR; BILIRUBIN,URINE NEGATIVE (NEGATIVE); COLOR,URINE YELLOW; GLUCOSE, URINE NEGATIVE (NEGATIVE); KETONES,URINE NEGATIVE (NEGATIVE); PROTEIN,URINE NEGATIVE (NEGATIVE); UROBILINOGEN,URINE NEGATIVE mg/dL (<2.0)
[2019-12-20] MEDS: DEXTROSE 5%-LACTATED RINGERS 1,000 ML IV PRN (22:45)
[2019-12-20] MEDS: FAMOTIDINE INJ/PF 20 MG/2 ML SDV IV SCH (22:45)
--- NOTE | 2019-12-21 00:41 | PDOC H&P ---
History of Present Illness Admission Date/PCP: 12/20/2019 20:00 ALFIE HAN MD Patient complains of: Left ankle pain History of Present Illness: WEI HARRISON is a 84 year old male who presents the emergency room via EMS with a 1 day history of left ankle pain. He admits that while getting up out of his lift chair, yesterday, he lost his balance and fell, immediately experiencing severe sharp pain in his left ankle worsened by movement and attempted weightbearing. The pain has been constant since the injury and is nonradiating. He denies other associated or accompanying signs and symptoms. He denies prior similar episodes. He has not identified any additional aggravating or ameliorating factors for his left ankle pain. In the emergency room he was found to have a spiral fracture of the distal left fibula with minimal displacement. Dr. Felipe was consulted for orthopedic surgery by the emergency room provider and asked that the patient be admitted by the hospitalist service for his evaluation and treatment on a consultation basis. Patient was subsequently admitted to the hospital for further evaluation treatment. 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 Denies: Hemorrhagic CVA, Ischemic CVA, Seizures Endocrine Medical History: Denies: Diabetes Mellitus Type 1, Diabetes Mellitus Type 2, Hyperthyroidism, Hypothyroidism Renal/ Medical History: Denies: Chronic Kidney Disease, Nephrolithiasis Malignancy Medical History: Reports: Skin Cancer GI Medical History: Reports: Gastroesophageal Reflux Disease Denies: Cirrhosis, Hepatitis, Hiatal Hernia, Peptic Ulcer Disease Musculoskeltal Medical History: Reports: Arthritis Denies: Gout Skin Medical History: Denies: Eczema, Psoriasis Psychiatric Medical History: 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 Denies: Alcohol Dependency, Substance Abuse Traumatic Medical History: Reports: None Hematology: Denies: Anemia, Bleeding Tendencies Infectious Medical History: Reports: None Past Surgical History Past Surgical History: Reports: Herniorrhaphy - X2, Orthopedic Surgery - Cervical laminectomy x2, Tonsillectomy, Other - Bilateral cataract surgeries Social History Information Source: Patient Lives with: Spouse/Significant other Smoking Status: Former Smoker Electronic Cigarette use?: No Frequency of Alcohol Use: None Hx Recreational Drug Use: No Drugs: None Hx Prescription Drug Abuse: No - Advance Directive Resuscitation Status: Full Code Surrogate healthcare decision maker:: Anastacia Harrison Family History Family History: CAD, Malignancy. denies: DM Parental Family History Reviewed: Yes Children Family History Reviewed: No Sibling(s) Family History Reviewed.: Yes Medication/Allergy Home Medications: Cyclobenzaprine HCl 5 mg PO HSP PRN 06/15/15 Enalapril Maleate [Vasotec 10 mg Tablet] 10 mg PO DAILY 06/15/15 Hydrocodone/Acetaminophen [[place] 7.5-325 mg Tablet] 1 tab PO Q4HP PRN 06/15/15 Mesalamine [Lialda] 2.4 gm PO DAILY 06/15/15 Omeprazole 40 mg PO DAILY 06/15/15 Potassium Chloride [Klor-Con 10] 10 meq PO DAILY 06/15/15 Simvastatin 40 mg PO QHS 06/15/15 Celecoxib [Celebrex 200 mg Capsule] 200 mg PO Q12 12/20/19 Cephalexin [Keflex] 250 mg PO DAILY 12/20/19 Oxybutynin Chloride [Oxybutynin Chloride ER] 10 mg PO DAILY 12/20/19 Tadalafil [Cialis] 5 mg PO QHS 12/20/19 Allergies/Adverse Reactions: Sulfa (Sulfonamide Antibiotics) Allergy (Intermediate, Verified 07/27/18 14:08) Chest pain Review of Systems Constitutional: ABSENT: chills, fever(s) Eyes: ABSENT: visual disturbances, other - Eye pain Ears: PRESENT: other - Ear pain. 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 ABSENT: joint swelling Integumentary: ABSENT: pruritus, rash Neurological: PRESENT: abnormal gait - Chronic, uses a walker and a lift chair. ABSENT: confusion, convulsions, focal weakness, memory loss, syncope Psychiatric: ABSENT: anxiety, depression Endocrine: ABSENT: cold intolerance, heat intolerance Hematologic/Lymphatic: ABSENT: easy bleeding, easy bruising Allergic/Immunologic: ABSENT: seasonal rhinorrhea Physical Exam Vital Signs: Temp Pulse Resp BP Pulse Ox 98.8 F 76 17 131/57 H 99 12/20/19 18:25 12/20/19 18:25 12/20/19 18:25 12/20/19 18:25 12/20/19 18:25 Intake & Output 12/18/19 12/19/19 12/20/19 23:59 23:59 23:59 Weight 58.967 kg General appearance: PRESENT: cooperative, mild distress - Secondary to left ankle pain Head exam: PRESENT: atraumatic, normocephalic Eye exam: PRESENT: conjunctiva pink. ABSENT: conjunctival injection, scleral icterus Ear exam: PRESENT: normal external ear exam. ABSENT: bleeding, drainage Mouth exam: PRESENT: dry mucosa, neck supple Neck exam: ABSENT: thyromegaly, tracheal deviation Respiratory exam: PRESENT: clear to auscultation annika, symmetrical, unlabored Cardiovascular exam: PRESENT: RRR. ABSENT: clicks, gallop, rubs Pulses: PRESENT: normal radial pulses, normal dorsalis pedis pul Vascular exam: PRESENT: normal capillary refill. ABSENT: pallor GI/Abdominal exam: PRESENT: normal bowel sounds, soft. ABSENT: tenderness Rectal exam: PRESENT: deferred Extremities exam: PRESENT: joint swelling - Left ankle, tenderness - Left lateral malleolus, other - Left ankle/lower extremity is in a splint applied in the emergency room per Dr. Felipe's instructions Musculoskeletal exam: ABSENT: deformity, dislocation Neurological exam: PRESENT: alert, oriented to person, oriented to place, oriented to time, oriented to situation, CN II-XII grossly intact, motor sensory deficit - Moderate generalized functional paresis Psychiatric exam: PRESENT: appropriate affect, normal mood Skin exam: PRESENT: dry, intact, vesicles. ABSENT: jaundice, rash, urticaria Results Laboratory Results: 12/20/19 18:10 12/20/19 18:10 12/20/19 12/20/19 18:10 18:10 WBC 7.7 RBC 4.68 Hgb 13.7 Hct 41.7 MCV 89 MCH 29.3 MCHC 32.9 RDW 15.2 H Plt Count 153 Seg Neutrophils % 62.1 Sodium 136.9 L Potassium 5.3 H Chloride 102 Carbon Dioxide 25 Anion Gap 10 BUN 47 H Creatinine 1.04 Est GFR ( Amer) > 60 Glucose 97 Calcium 8.4 Total Bilirubin 0.6 AST 24 Alkaline Phosphatase 49 Total Protein 7.3 Albumin 4.1 Impressions: Ankle X-Ray 12/20/19 00:00 IMPRESSION: Fracture distal fibula. Assessment and Plan - Diagnosis (1) Closed fracture of left distal fibula Qualifiers: Encounter type: initial encounter Fracture morphology: other fracture Qualified Code(s): S82.832A - Other fracture of upper and lower end of left fibula, initial encounter for closed fracture Is this a current diagnosis for this admission?: Yes (2) Hypertension Qualifiers: Hypertension type: essential hypertension Qualified Code(s): I10 - Essential (primary) hypertension Is this a current diagnosis for this admission?: Yes (3) Hyperlipidemia Qualifiers: Hyperlipidemia type: unspecified Qualified Code(s): E78.5 - Hyperlipidemia, unspecified Is this a current diagnosis for this admission?: Yes (4) Arthritis Is this a current diagnosis for this admission?: Yes (5) Gastroesophageal reflux disease Qualifiers: Esophagitis presence: esophagitis presence not specified Qualified Code(s): K21.9 - Gastro-esophageal reflux disease without esophagitis Is this a current diagnosis for this admission?: Yes (6) Paresis Is this a current diagnosis for this admission?: Yes - Plan Summary Summary: Patient will be admitted to the medical floor where he will receive routine supportive and symptomatic cares. Dr. Felipe will be consulted for orthopedic evaluation and treatment. Patient received morphine sulfate 2 to 4 mg IV every 2 hours on an as-needed basis for pain control. He will receive Ativan 1 mg IV every 4 hours as needed for anxiety or restlessness. The patient has a splint to the left lower extremity applied in the ER per Dr. Felipe's instructions. He will be on bedrest. He will be n.p.o. after midnight in anticipation of possible surgical intervention in the morning. He will receive IV fluids utilizing D5LR. Hypertension will be managed with IV hydralazine and/or metoprolol as required. Case management will be consulted for disposition and physical therapy will be consulted for evaluation and treatment. CBCs, metabolic profiles and additional laboratory and/or radiographic evaluations will be obtained as needed. - Time Time Spent with patient: 15-24 minutes Medications reviewed and adjusted accordingly: Yes Anticipated Discharge Disposition: [facility] Anticipated Discharge Timeframe: when bed available - Inpatient Certification Based on my medical assessment, after consideration of the patient's comorbidities, presenting symptoms, or acuity I expect that the services needed warrant INPATIENT care.: Yes I certify that my determination is in accordance with my understanding of Medicare's requirements for reasonable and necessary INPATIENT services [42 CFR 412.3e].: Yes Medical Necessity: Significant Comorbidiites Make Outpatient Treatment Too R isky, Need for Pain Control, Need for Surgery, Risk of Complication if Not Cared For in Hospital
[2019-12-21] MEDS: HEPARIN SOD (PORCINE) 5,000 UNIT/ML 1 ML VIAL SUBCUT SCH ×3 (05:16→22:27)
[2019-12-21] MEDS: MORPHINE SULFATE 10 MG/ML INJ IV PRN (06:21)
[2019-12-21 06:35] LABS: HEMATOCRIT 38.6 % (37.9-51.0); HEMOGLOBIN 12.7 g/dL (13.5-17.0); MEAN CORPUSCULAR HEMOGLOBIN 29.1 pg (27.0-33.4); MEAN CORPUSCULAR VOLUME 88 fl (80-97); PLATELET COUNT 120 10^3/uL (150-450); RED BLOOD COUNT 4.38 10^6/uL (4.35-5.55); RED CELL DISTRIBUTION WIDTH 15.1 % (11.5-14.0); WHITE BLOOD COUNT 5.5 10^3/uL (4.0-10.5)
[2019-12-21 07:04] LABS: ALBUMIN 3.8 g/dL (3.5-5.0); ALKALINE PHOSPHATASE 51 U/L (38-126); ANION GAP 5 (5-19); ASPARTATE AMINO TRANSFERASE 21 U/L (17-59); BILIRUBIN,TOTAL 0.8 mg/dL (0.2-1.3); BLOOD UREA NITROGEN 37 mg/dL (7-20); CALCIUM 8.8 mg/dL (8.4-10.2); CARBON DIOXIDE 26 mmol/L (22-30); CHLORIDE 103 mmol/L (98-107); CHOLESTEROL 126.73 mg/dL (0-200); GLUCOSE 124 mg/dL (75-110); POTASSIUM 5.2 mmol/L (3.6-5.0); TOTAL PROTEIN 6.8 g/dL (6.3-8.2); TRIGLYCERIDES 55 mg/dL (<150)
[2019-12-21 07:14] LABS: DIRECT LDL 58 mg/dL (<100)
--- NOTE | 2019-12-21 10:11 | EKG REPORT ---
SEVERITY:- ABNORMAL ECG - SINUS RHYTHM FIRST DEGREE AV BLOCK PROBABLE LEFT ATRIAL ABNORMALITY RIGHT BUNDLE BRANCH BLOCK LEFT VENTRICULAR HYPERTROPHY : Confirmed by: Jesús Koch 21-Dec-2019 10:10:44
[2019-12-21] MEDS: FAMOTIDINE INJ/PF 20 MG/2 ML SDV IV SCH (10:35)
[2019-12-21] MEDS: DEXTROSE 5%-LACTATED RINGERS 1,000 ML IV PRN ×2 (10:35→16:57)
--- NOTE | 2019-12-21 12:17 | PDOC CONSULTATION ---
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 The patient is has had difficulty ambulating since his injury. 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 Denies: Hemorrhagic CVA, Ischemic CVA, Seizures Endocrine Medical History: Denies: Diabetes Mellitus Type 1, Diabetes Mellitus Type 2, Hyperthyroidism, Hypothyroidism Renal/ Medical History: Denies: Chronic Kidney Disease, Nephrolithiasis Malignancy Medical History: Reports: Skin Cancer GI Medical History: Reports: Crohn's Disease, Gastroesophageal Reflux Disease Denies: Cirrhosis, Hepatitis, Hiatal Hernia, Peptic Ulcer Disease Musculoskeltal Medical History: Reports: Arthritis Denies: Gout Skin Medical History: Denies: Eczema, Psoriasis Psychiatric Medical History: 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 Denies: Alcohol Dependency, Depression, Substance Abuse Traumatic Medical History: Reports: None Hematology: Denies: Anemia, Sickle Cell Disease, Bleeding Tendencies Infectious Medical History: Reports: None Past Surgical History Past Surgical History: Reports: Herniorrhaphy - X2, Orthopedic Surgery - Cervical laminectomy x2, Tonsillectomy, Other - Bilateral cataract surgeries Denies: Pacemaker Social History Lives with: Spouse/Significant other Smoking Status: Former Smoker Electronic Cigarette use?: No Frequency of Alcohol Use: None Hx Recreational Drug Use: No Drugs: None Hx Prescription Drug Abuse: No - Advance Directive Resuscitation Status: Full Code Family History Family History: CAD, Malignancy. denies: DM Parental Family History Reviewed: Yes Children Family History Reviewed: Yes Sibling(s) Family History Reviewed.: Yes Medication/Allergy Home Medications: Cyclobenzaprine HCl 5 mg PO HSP PRN 06/15/15 Enalapril Maleate [Vasotec 10 mg Tablet] 10 mg PO DAILY 06/15/15 Hydrocodone/Acetaminophen [[place] 7.5-325 mg Tablet] 1 tab PO Q4HP PRN 06/15/15 Mesalamine [Lialda] 2.4 gm PO DAILY 06/15/15 Omeprazole 40 mg PO DAILY 06/15/15 Potassium Chloride [Klor-Con 10] 10 meq PO DAILY 06/15/15 Simvastatin 40 mg PO QHS 06/15/15 Celecoxib [Celebrex 200 mg Capsule] 200 mg PO Q12 12/20/19 Cephalexin [Keflex] 250 mg PO DAILY 12/20/19 Oxybutynin Chloride [Oxybutynin Chloride ER] 10 mg PO DAILY 12/20/19 Tadalafil [Cialis] 5 mg PO QHS 12/20/19 Allergies/Adverse Reactions: Sulfa (Sulfonamide Antibiotics) Allergy (Intermediate, Verified 07/27/18 14:08) Chest pain Review of Systems ROS unobtainable: Other - As per HPI Physical Exam Vital Signs: Temp Pulse Resp BP Pulse Ox 98.1 F 77 16 113/53 L 95 12/21/19 08:00 12/21/19 08:00 12/21/19 08:00 12/21/19 08:00 12/21/19 08:00 Intake & Output 12/20/19 12/21/19 12/22/19 06:59 06:59 06:59 Intake Total 1000 Output Total 850 Balance 150 Weight 71.4 kg General appearance: PRESENT: no acute distress, well-developed, well-nourished Head exam: PRESENT: atraumatic, normocephalic Mouth exam: PRESENT: moist, tongue midline Neck exam: PRESENT: full ROM Respiratory exam: PRESENT: clear to auscultation annika. ABSENT: rales, rhonchi, wheezes Cardiovascular exam: PRESENT: RRR. ABSENT: diastolic murmur, rubs, systolic murmur GI/Abdominal exam: PRESENT: normal bowel sounds, soft. ABSENT: distended, guarding, mass, organolmegaly, rebound, tenderness Rectal exam: PRESENT: deferred Musculoskeletal exam: PRESENT: other - There is a displaced fracture of the left lateral malleolus. There is resolving ecchymosis on the lateral aspect of the ankle. The patient is able to move all of his toes. Sensation is intact to touch. 2+ posterior tibial and dorsalis pedis pulses are present. Neurological exam: PRESENT: alert, awake, oriented to person, oriented to place, oriented to time, oriented to situation, CN II-XII grossly intact. ABSENT: motor sensory deficit Psychiatric exam: PRESENT: appropriate affect, normal mood. ABSENT: homicidal ideation, suicidal ideation Results Laboratory Results: 12/21/19 05:21 12/21/19 05:21 12/20/19 12/20/19 12/20/19 18:10 18:10 22:03 WBC 7.7 RBC 4.68 Hgb 13.7 Hct 41.7 MCV 89 MCH 29.3 MCHC 32.9 RDW 15.2 H Plt Count 153 Seg Neutrophils % 62.1 Sodium 136.9 L Potassium 5.3 H Chloride 102 Carbon Dioxide 25 Anion Gap 10 BUN 47 H Creatinine 1.04 Est GFR ( Amer) > 60 Glucose 97 Calcium 8.4 Magnesium Total Bilirubin 0.6 AST 24 Alkaline Phosphatase 49 Total Protein 7.3 Albumin 4.1 Triglycerides Cholesterol LDL Cholesterol Direct VLDL Cholesterol HDL Cholesterol TSH Urine Color YELLOW Urine Appearance CLEAR Urine pH 5.0 Ur Specific [place] 1.010 Urine Protein NEGATIVE Urine Glucose (UA) NEGATIVE Urine Ketones NEGATIVE Urine Blood NEGATIVE Urine RBC (Auto) 0 12/21/19 12/21/19 12/21/19 05:21 05:21 05:21 WBC 5.5 RBC 4.38 Hgb 12.7 L Hct 38.6 MCV 88 MCH 29.1 MCHC 33.0 RDW 15.1 H Plt Count 120 L Seg Neutrophils % Sodium 133.9 L Potassium 5.2 H Chloride 103 Carbon Dioxide 26 Anion Gap 5 BUN 37 H Creatinine 0.79 Est GFR ( Amer) > 60 Glucose 124 H Calcium 8.8 Magnesium 2.6 H Total Bilirubin 0.8 AST 21 Alkaline Phosphatase 51 Total Protein 6.8 Albumin 3.8 Triglycerides 55 Cholesterol 126.73 LDL Cholesterol Direct 58 VLDL Cholesterol 11.0 HDL Cholesterol 54 TSH 1.62 Urine Color Urine Appearance Urine pH Ur Specific [place] Urine Protein Urine Glucose (UA) Urine Ketones Urine Blood Urine RBC (Auto) Impressions: Ankle X-Ray 12/20/19 00:00 IMPRESSION: Fracture distal fibula. Chest X-Ray 12/20/19 19:25 IMPRESSION: No change in appearance since 2012. No acute findings. Assessment & Plan - Diagnosis (1) Closed fracture of left distal fibula Qualifiers: Encounter type: initial encounter Fracture morphology: other fracture [place] lified Code(s): S82.832A - Other fracture of upper and lower end of left fibula, initial encounter for closed fracture Is this a current diagnosis for this admission?: Yes - Time Time Spent: 30 to 50 Minutes Anticipated discharge: SNF - Plan Summary Plan Summary: Patient has sustained a displaced fracture of the left lateral malleolus. We have discussed nonoperative and operative treatment. Patient has elected to proceed with operative fixation of the lateral malleolus fracture. Risks, benefits, and alternatives were discussed. An opportunity for questions was provided. All questions were answered to his satisfaction. The patient expressed understanding and wishes to proceed with surgery.
[2019-12-21] MEDS ORDERED: DEXAMETHASONE SOD PHOSPHATE INJ 4 MG/1 ML VIAL ONE (13:17)
[2019-12-21] MEDS ORDERED: MIDAZOLAM 2 MG/2 ML INJ ONE (13:17)
[2019-12-21] MEDS ORDERED: FENTANYL CITRATE INJ/PF 100 MCG/2 ML AMPUL ONE ×3 (13:17→14:49)
[2019-12-21] MEDS ORDERED: ROPIVACAINE HCL 0.5% INJ/PF (5 MG/1 ML) 30 ML SDV ONE (13:17)
[2019-12-21] MEDS ORDERED: BUPIVACAINE HCL 0.5 % INJ/PF 30 ML SDV ONE (13:34)
[2019-12-21] MEDS ORDERED: PROPOFOL INJ 200 MG/20 ML VIAL IV ONE (14:05)
[2019-12-21] MEDS ORDERED: ONDANSETRON HCL INJ/PF 4 MG/2 ML SDV ONE (14:05)
[2019-12-21] MEDS ORDERED: LIDOCAINE 2% INJ-PF (20 MG/ML) 10 ML AMPUL ONE (14:05)
[2019-12-21] MEDS ORDERED: CEFAZOLIN INJ 1 GM VIAL ONE (14:27)
[2019-12-21] MEDS ORDERED: MORPHINE SULFATE 10 MG/ML INJ IV PRN (14:41)
[2019-12-21] MEDS ORDERED: PROMETHAZINE HCL INJ 25 MG/1 ML VIAL IV PRN ×2 (14:41)
[2019-12-21] MEDS ORDERED: MEPERIDINE HCL/PF INJ 25 MG/1 ML DISP.SYRIN IV PRN (14:41)
[2019-12-21] MEDS ORDERED: DIPHENHYDRAMINE HCL 50 MG/ML VIAL IV PRN (14:41)
[2019-12-21] MEDS ORDERED: FENTANYL CITRATE INJ/PF 100 MCG/2 ML AMPUL IV PRN ×3 (14:41)
[2019-12-21] MEDS ORDERED: OXYCODONE-ACETAMINOPHEN 5-325 MG TABLET PO PRN ×2 (14:41)
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
--- NOTE | 2019-12-21 17:02 | RADIOLOGY REPORT (SQ) ---
EXAM DESCRIPTION: ANKLE LEFT COMPLETE IMAGES COMPLETED DATE/TIME: 12/21/2019 3:23 pm REASON FOR STUDY: ORIF LEFT ANKLE ASSISTED WITH FLUORO IN OR COMPARISON: 12/20/2019 FLUOROSCOPY TIME: 0.1 minutes 3 images saved to PACS. TECHNIQUE: Intra-operative images acquired during surgical procedure to evaluate progress. NUMBER OF IMAGES: 3 LIMITATIONS: None. FINDINGS: 3 images show open reduction internal fixation of distal fibular fracture, anatomic alignm ent. Please correlate with operative note. IMPRESSION: IMAGE(S) OBTAINED DURING PROCEDURE. COMMENT: Quality ID [id number]: Final reports for procedures using fluoroscopy that document radiation exp osure indices, or exposure time and number of fluorographic images (if radiation exposure indices are not available) Please consult full operative report of the attending physician for description of the procedure. TECHNICAL DOCUMENTATION: JOB ID: [id number] 2010 [employer]- All Rights Reserved Reading location - IP/workstation name: [email or web address]
--- NOTE | 2019-12-21 18:32 | PDOC PROGRESS REPORT ---
Subjective Subjective:: Patient admitted overnight for closed left spiral tib-fib fracture, orthopedic surgery consulted on admission with plans for OR for corrective surgery. Patient states he is doing well and his pain is primarily controlled. He has no complaints other than lower extremity pain at the site of his fracture on the left. Reason For Visit: CLOSED SPIRAL FRACTURE OF LEFT FIBULA WITH MINIMAL Physical Exam Vital Signs: Temp Pulse Resp BP Pulse Ox 97.5 F 83 14 141/81 H 100 12/21/19 17:18 12/21/19 17:18 12/21/19 17:18 12/21/19 17:18 12/21/19 17:18 Intake & Output 12/20/19 12/21/19 12/22/19 06:59 06:59 06:59 Intake Total 1000 1896 Output Total 850 520 Balance 150 1376 Weight 71.4 kg General appearance: PRESENT: no acute distress, well-developed, well-nourished Head exam: PRESENT: atraumatic, normocephalic Eye exam: PRESENT: conjunctiva pink Mouth exam: PRESENT: moist Respiratory exam: PRESENT: clear to auscultation annika. ABSENT: rales, rhonchi, wheezes Cardiovascular exam: PRESENT: RRR. ABSENT: diastolic murmur, rubs, systolic murmur GI/Abdominal exam: PRESENT: normal bowel sounds, soft. ABSENT: distended, guarding, mass, organolmegaly, rebound, tenderness Extremities exam: PRESENT: tenderness - Tender left lower extremity at the site of spiral fracture Neurological exam: PRESENT: alert, awake, oriented to person, oriented to place, oriented to time, oriented to situation Psychiatric exam: PRESENT: appropriate affect, normal mood Skin exam: PRESENT: dry, intact, warm Results Laboratory Results: 12/21/19 05:21 12/21/19 05:21 12/20/19 12/20/19 12/20/19 18:10 18:10 22:03 WBC 7.7 RBC 4.68 Hgb 13.7 Hct 41.7 MCV 89 MCH 29.3 MCHC 32.9 RDW 15.2 H Plt Count 153 Seg Neutrophils % 62.1 Sodium 136.9 L Potassium 5.3 H Chloride 102 Carbon Dioxide 25 Anion Gap 10 BUN 47 H Creatinine 1.04 Est GFR ( Amer) > 60 Glucose 97 Calcium 8.4 Magnesium Total Bilirubin 0.6 AST 24 Alkaline Phosphatase 49 Total Protein 7.3 Albumin 4.1 Triglycerides Cholesterol LDL Cholesterol Direct VLDL Cholesterol HDL Cholesterol TSH Urine Color YELLOW Urine Appearance CLEAR Urine pH 5.0 Ur Specific [place] 1.010 Urine Protein NEGATIVE Urine Glucose (UA) NEGATIVE Urine Ketones NEGATIVE Urine Blood NEGATIVE Urine RBC (Auto) 0 12/21/19 12/21/19 12/21/19 05:21 05:21 05:21 WBC 5.5 RBC 4.38 Hgb 12.7 L Hct 38.6 MCV 88 MCH 29.1 MCHC 33.0 RDW 15.1 H Plt Count 120 L Seg Neutrophils % Sodium 133.9 L Potassium 5.2 H Chloride 103 Carbon Dioxide 26 Anion Gap 5 BUN 37 H Creatinine 0.79 Est GFR ( Amer) > 60 Glucose 124 H Calcium 8.8 Magnesium 2.6 H Total Bilirubin 0.8 AST 21 Alkaline Phosphatase 51 Total Protein 6.8 Albumin 3.8 Triglycerides 55 Cholesterol 126.73 LDL Cholesterol Direct 58 VLDL Cholesterol 11.0 HDL Cholesterol 54 TSH 1.62 Urine Color Urine Appearance Urine pH Ur Specific [place] Urine Protein Urine Glucose (UA) Urine Ketones Urine Blood Urine RBC (Auto) Impressions: Chest X-Ray 12/20/19 19:25 IMPRESSION: No change in appearance since 2012. No acute findings. Ankle X-Ray 12/21/19 00:00 IMPRESSION: IMAGE(S) OBTAINED DURING PROCEDURE. Assessment and Plan - Diagnosis (1) Closed fracture of left distal fibula Qualifiers: Encounter type: initial encounter Fracture morphology: other fracture Qualified Code(s): S82.832A - Other fracture of upper and lower end of left fibula, initial encounter for closed fracture Is this a current diagnosis for this admission?: Yes Plan: Orthopedic surgery consulted Imaging reviewed Pain management Surgical correction plan 12/20 DVT prophylaxis (2) Arthritis Is this a current diagnosis for this admission?: Yes Plan: Pain management (3) Gastroesophageal reflux disease Qualifiers: Esophagitis presence: esophagitis presence not specified Qualified Code(s): K21.9 - Gastro-esophageal reflux disease without esophagitis Is this a current diagnosis for this admission?: Yes Plan: Antacids (4) Hyperlipidemia Qualifiers: Hyperlipidemia type: unspecified Qualified Code(s): E78.5 - Hyperlipidemia, unspecified Is this a current diagnosis for this admission?: Yes (5) Hypertension Qualifiers: Hypertension type: essential hypertension Qualified Code(s): I10 - Essential (primary) hypertension Is this a current diagnosis for this admission?: Yes Plan: Holding medications for hyperkalemia likely due to ISMAEL inhibitor and potassium supplement (6) Paresis Is this a current diagnosis for this admission?: Yes - Plan Summary Summary: Patient will be admitted to the medical floor where he will receive routine supportive and symptomatic cares. Dr. Felipe will be consulted for orthopedic e valuation and treatment. Patient received morphine sulfate 2 to 4 mg IV every 2 hours on an as-needed basis for pain control. He will receive Ativan 1 mg IV every 4 hours as needed for anxiety or restlessness. The patient has a splint to the left lower extremity applied in the ER per Dr. Felipe's instructions. He will be on bedrest. He will be n.p.o. after midnight in anticipation of possible surgical intervention in the morning. He will receive IV fluids utilizing D5LR. Hypertension will be managed with IV hydralazine and/or metoprolol as required. Case management will be consulted for disposition and physical therapy will be consulted for evaluation and treatment. CBCs, metabolic profiles and additional laboratory and/or radiographic evaluations will be obtained as needed. - Time Time Spent with patient: 15-24 minutes Medications reviewed and adjusted accordingly: Yes Anticipated Discharge Disposition: Long Term Facility Anticipated Discharge Timeframe: within 72 hours - Inpatient Certification Based on my medical assessment, after consideration of the patient's comorbidities, presenting symptoms, or acuity I expect that the services needed warrant INPATIENT care.: Yes I certify that my determination is in accordance with my understanding of Medicare's requirements for reasonable and necessary INPATIENT services [42 CFR 412.3e].: Yes Medical Necessity: Significant Comorbidiites Make Outpatient Treatment Too Risky, Need Close Monitoring Due to Risk of Patient Decompensation, Need for Surgery, Risk of Complication if Not Cared For in Hospital, Risk of Diagnosis Which Will Require Inpatient Eval/Care/Monitoring
[2019-12-21] MEDS: CEFAZOLIN SODIUM 2 GM in DEXTROSE 5%-WATER 100 ML IV SCH (19:57)
[2019-12-21] MEDS: SIMVASTATIN 40 MG TABLET PO SCH (22:29)
[2019-12-22] MEDS: CEFAZOLIN SODIUM 2 GM in DEXTROSE 5%-WATER 100 ML IV SCH ×3 (02:37→18:36)
[2019-12-22] MEDS: HEPARIN SOD (PORCINE) 5,000 UNIT/ML 1 ML VIAL SUBCUT SCH ×3 (05:43→22:25)
[2019-12-22] MEDS: PANTOPRAZOLE SODIUM 40 MG TABLET.DR PO SCH (09:49)
--- NOTE | 2019-12-22 14:09 | PDOC PROGRESS REPORT ---
Subjective Progress Note for:: 12/22/19 Subjective:: The patient is complaining of mild postoperative pain following ORIF of the lateral malleolus fracture. He is more troubled by spasms which he states he has difficulty tolerating in the postoperative splint. Reason For Visit: CLOSED SPIRAL FRACTURE OF LEFT FIBULA WITH MINIMAL Postoperative day #1 status post open reduction internal fixation left lateral malleolus fracture. Physical Exam Vital Signs: Temp Pulse Resp BP Pulse Ox 97.4 F 81 16 155/64 H 98 12/22/19 11:56 12/22/19 11:56 12/22/19 11:56 12/22/19 11:56 12/22/19 11:56 Intake & Output 12/21/19 12/22/19 12/23/19 06:59 06:59 06:59 Intake Total 1000 2547 220 Output Total 850 920 Balance 150 1627 220 Weight 71.4 kg 72.8 kg General appearance: PRESENT: no acute distress Respiratory exam: PRESENT: symmetrical, unlabored Cardiovascular exam: PRESENT: RRR. ABSENT: diastolic murmur, rubs, systolic murmur Musculoskeletal exam: PRESENT: other - The surgical splint and dressing are in place. There is no drainage present. The patient is able to move all of his toes. Sensation and capillary refill are normal. Results Laboratory Results: 12/21/19 05:21 12/21/19 05:21 Impressions: Chest X-Ray 12/20/19 19:25 IMPRESSION: No change in appearance since 2012. No acute findings. Ankle X-Ray 12/21/19 00:00 IMPRESSION: IMAGE(S) OBTAINED DURING PROCEDURE. Assessment & Plan - Diagnosis (1) Closed fracture of left distal fibula Qualifiers: Encounter type: initial encounter Fracture morphology: other fracture Qualified Code(s): S82.832A - Other fracture of upper and lower end of left fibula, initial encounter for closed fracture Is this a current diagnosis for this admission?: Yes - Time Critical Time spent with patient: 15-24 minutes Anticipated Discharge Disposition: Nursing Home Facility Anticipated Discharge Timeframe: within 48 hours - Plan Summary Plan Summary: The patient's main complaint following ORIF of the lateral malleolus is spasms. I have ordered an equalizer boot to replace the surgical splint. This boot can be removed intermittently and may help alleviate some of the symptoms that he is experiencing. I have talked with the patient and he was having difficulty ambulating prior to his fall. He states that he was scheduled to begin physical therapy for ambulation training prior to his injury. He is nonweightbearing on this ankle for at least the next 4 to 6 weeks. He will likely require transfer to a [facility] facility during this time.
[2019-12-22] MEDS ORDERED: (PENDING PHARMACY ID) (Cyclobenzaprine Hcl [Cyclobenzaprine Hcl] 5 MG) PO PRN (15:08)
[2019-12-22] MEDS ORDERED: BISACODYL 5 MG TABEC PO ONE (15:14)
[2019-12-22] MEDS ORDERED: BISACODYL 5 MG TABEC PO PRN (15:14)
[2019-12-22] MEDS ORDERED: BISACODYL 10 MG SUPP.RECT PR PRN (15:14)
--- NOTE | 2019-12-22 15:18 | PDOC PROGRESS REPORT ---
Subjective Subjective:: Patient admitted overnight for closed left spiral tib-fib fracture, orthopedic surgery consulted on admission with plans for OR for corrective surgery. Patient states he is doing well and his pain is primarily controlled. He has no complaints other than lower extremity pain at the site of his fracture on the left. 12/22/2019 Per patient and surgery documentation, surgery went well. Patient having some muscle spasms in his legs and asking for his home dose of Flexeril which I have ordered. I have also added back some additional home medications that he was taking before. Labs today are pending. Patient is working with physical therapy and he will very likely need SNF according to orthopedic surgery. Patient has no new complaints. Reason For Visit: CLOSED SPIRAL FRACTURE OF LEFT FIBULA WITH MINIMAL Physical Exam Vital Signs: Temp Pulse Resp BP Pulse Ox 97.4 F 81 16 155/64 H 98 12/22/19 11:56 12/22/19 11:56 12/22/19 11:56 12/22/19 11:56 12/22/19 11:56 Intake & Output 12/21/19 12/22/19 12/23/19 06:59 06:59 06:59 Intake Total 1000 2547 220 Output Total 850 920 Balance 150 1627 220 Weight 71.4 kg 72.8 kg General appearance: PRESENT: no acute distress, well-developed, well-nourished Head exam: PRESENT: atraumatic, normocephalic Eye exam: PRESENT: conjunctiva pink Mouth exam: PRESENT: moist Respiratory exam: PRESENT: clear to auscultation annika. ABSENT: rales, rhonchi, wheezes Cardiovascular exam: PRESENT: RRR. ABSENT: diastolic murmur, rubs, systolic murmur GI/Abdominal exam: PRESENT: normal bowel sounds, soft. ABSENT: distended, guarding, mass, organolmegaly, rebound, tenderness Extremities exam: PRESENT: tenderness - Tender at surgical site, healing, mild edema Neurological exam: PRESENT: alert, awake, oriented to person, oriented to place, oriented to time, oriented to situation Psychiatric exam: PRESENT: appropriate affect, normal mood Skin exam: PRESENT: dry, warm Results Laboratory Results: 12/21/19 05:21 12/21/19 05:21 Impressions: Chest X-Ray 12/20/19 19:25 IMPRESSION: No change in appearance since 2012. No acute findings. Ankle X-Ray 12/21/19 00:00 IMPRESSION: IMAGE(S) OBTAINED DURING PROCEDURE. Assessment and Plan - Diagnosis (1) Closed fracture of left distal fibula Qualifiers: Encounter type: initial encounter Fracture morphology: other fracture Qualified Code(s): S82.832A - Other fracture of upper and lower end of left fibula, initial encounter for closed fracture Is this a current diagnosis for this admission?: Yes Plan: Orthopedic surgery consulted Imaging reviewed Pain management Surgical correction plan 12/20 DVT prophylaxis 12/21/2021 Underwent surgery overnight on 12/20, no reported complications Pain management continues, mostly controlled on current regimen, added Flexeril from home meds as well as celecoxib Very likely will need SNF placement at discharge, physical therapy working with him (2) Arthritis Is this a current diagnosis for this admission?: Yes (3) Gastroesophageal reflux disease Qualifiers: Esophagitis presence: esophagitis presence not specified Qualified Code(s): K21.9 - Gastro-esophageal reflux disease without esophagitis Is this a current diagnosis for this admission?: Yes (4) Hyperlipidemia Qualifiers: Hyperlipidemia type: unspecified Qualified Code(s): E78.5 - Hyperlipidemia, unspecified Is this a current diagnosis for this admission?: Yes (5) Hypertension Qualifiers: Hypertension type: essential hypertension Qualified Code(s): I10 - Essential (primary) hypertension Is this a current diagnosis for this admission?: Yes (6) Paresis Is this a current diagnosis for this admission?: Yes - Plan Summary Summary: Patient will be admitted to the medical floor where he will receive routine supportive and symptomatic cares. Dr. Felipe will be consulted for orthopedic evaluation and treatment. Patient received morphine sulfate 2 to 4 mg IV every 2 hours on an as-needed basis for pain control. He will receive Ativan 1 mg IV every 4 hours as needed for anxiety or restlessness. The patient has a splint to the left lower extremity applied in the ER per Dr. Felipe's instructions. He will be on bedrest. He will be n.p.o. after midnight in anticipation of possible surgical intervention in the morning. He will receive IV fluids utilizing D5LR. Hypertension will be managed with IV hydralazine and/or metoprolol as required. Case management will be consulted for disposition and physical therapy will be consulted for evaluation and treatment. CBCs, metabolic profiles and additional laboratory and/or radiographic evaluations will be obtained as needed. - Time Time Spent with patient: 15-24 minutes Medications reviewed and adjusted accordingly: Yes Anticipated Discharge Disposition: [facility] Facility Anticipated Discharge Timeframe: within 48 hours - Inpatient Certification Based on my medical assessment, after consideration of the patient's comorbidities, presenting symptoms, or acuity I expect that the services needed warrant INPATIENT care.: Yes I certify that my determination is in accordance with my understanding of Medicare's requirements for reasonable and necessary INPATIENT services [42 CFR 412.3e].: Yes Medical Necessity: Significant Comorbidiites Make Outpatient Treatment Too Risky, Need Close Monitoring Due to Risk of Patient Decompensation, Need for Pain Control, Risk of Complication if Not Cared For in Hospital, Risk of Diagno sis Which Will Require Inpatient Eval/Care/Monitoring
--- NOTE | 2019-12-22 15:24 | Progress Note ---
Provider Note Provider Note: Upon detailed review of the patient's orders in chart in general, it seems that there was never an admission order placed. He is inpatient and will need to go to SNF. Unclear if lack of an admission order will delay his care and transition to SNF. We will need social work to help us with this.
[2019-12-22 16:29] LABS: ABSOLUTE EOSINOPHILS # (AUTO) 0.1 10^3/uL (0.0-0.6); ABSOLUTE LYMPHOCYTES (AUTO) 2.1 10^3/uL (0.5-4.7); ABSOLUTE MONOCYTES (AUTO) 0.8 10^3/uL (0.1-1.4); ABSOLUTE NEUT (AUTO) 7.7 10^3/uL (1.7-8.2); BASOPHILS % (AUTO) 0.3 % (0-2); EOSINOPHILS % (AUTO) 0.7 % (0-6); HEMATOCRIT 38.4 % (37.9-51.0); HEMOGLOBIN 12.7 g/dL (13.5-17.0); LYMPHOCYTES % (AUTO) 19.4 % (13-45); MEAN CORPUSCULAR HEMOGLOBIN 29.2 pg (27.0-33.4); MEAN CORPUSCULAR HGB CONC 32.9 g/dL (32.0-36.0); MEAN CORPUSCULAR VOLUME 89 fl (80-97); MONOCYTES % (AUTO) 7.5 % (3-13); PLATELET COUNT 134 10^3/uL (150-450); RED BLOOD COUNT 4.34 10^6/uL (4.35-5.55); RED CELL DISTRIBUTION WIDTH 14.9 % (11.5-14.0); SEGMENTED NEUTROPHILS % (AUTO) 72.1 % (42-78); TOTAL CELLS COUNTED % (AUTO) 100 %; WHITE BLOOD COUNT 10.7 10^3/uL (4.0-10.5)
[2019-12-22 16:54] LABS: ANION GAP 9 (5-19); BLOOD UREA NITROGEN 26 mg/dL (7-20); CARBON DIOXIDE 28 mmol/L (22-30); CHLORIDE 100 mmol/L (98-107); GLUCOSE 132 mg/dL (75-110); POTASSIUM 4.2 mmol/L (3.6-5.0)
[2019-12-22] MEDS: CYCLOBENZAPRINE HCL 10 MG TABLET PO PRN (18:36)
[2019-12-22] MEDS: MORPHINE SULFATE 10 MG/ML INJ IV PRN (19:55)
[2019-12-22] MEDS ORDERED: ACETAMINOPHEN 325 MG TABLET PO PRN (21:28)
[2019-12-22] MEDS: CELECOXIB 200 MG CAPSULE PO SCH (22:27)
[2019-12-22] MEDS: SIMVASTATIN 40 MG TABLET PO SCH (22:28)
[2019-12-23] MEDS: LORAZEPAM INJ 2 MG/1 ML VIAL IV PRN ×3 (00:42→13:03)
[2019-12-23] MEDS: HEPARIN SOD (PORCINE) 5,000 UNIT/ML 1 ML VIAL SUBCUT SCH ×3 (05:20→22:26)
[2019-12-23] MEDS: MESALAMINE 400 MG CAPSULE.DR PO SCH (10:00)
[2019-12-23] MEDS: CELECOXIB 200 MG CAPSULE PO SCH ×2 (10:00→22:25)
[2019-12-23] MEDS: PANTOPRAZOLE SODIUM 40 MG TABLET.DR PO SCH (10:00)
--- NOTE | 2019-12-23 13:29 | PDOC PROGRESS REPORT ---
Subjective Progress Note for:: 12/23/19 Subjective:: The patient is quite confused today. The nurse reports that he has been confused for the entire shift. He is grasping near his abdomen overlying his bladder. The nurse reports that an ultrasound demonstrated urinary retention. A catheterization is planned to relieve the retention. The patient has a urinalysis which is consistent with a urinary tract infection. The hospitalist is aware. Reason For Visit: FALL AT HOME,LEFT FIBULA FRACTURE Physical Exam Vital Signs: Temp Pulse Resp BP Pulse Ox 97.5 F 92 28 H 130/82 H 91 L 12/23/19 11:52 12/23/19 11:52 12/23/19 11:52 12/23/19 11:52 12/23/19 11:52 Intake & Output 12/22/19 12/23/19 12/24/19 06:59 06:59 06:59 Intake Total 2547 960 Output Total 920 675 Balance 1627 285 Weight 72.8 kg 73 kg General appearance: PRESENT: other - Patient is confused. Head exam: PRESENT: atraumatic Respiratory exam: PRESENT: unlabored Cardiovascular exam: PRESENT: RRR. ABSENT: diastolic murmur, rubs, systolic murmur Musculoskeletal exam: PRESENT: other - The operative dressing and splint are in good condition. There is no drainage. The patient is actively moving his toes. Results Laboratory Results: 12/22/19 16:10 12/22/19 16:10 12/22/19 12/22/19 16:10 16:10 WBC 10.7 H RBC 4.34 L Hgb 12.7 L Hct 38.4 MCV 89 MCH 29.2 MCHC 32.9 RDW 14.9 H Plt Count 134 L Seg Neutrophils % 72.1 Sodium 136.9 L Potassium 4.2 Chloride 100 Carbon Dioxide 28 Anion Gap 9 BUN 26 H Creatinine 0.81 Est GFR ( Amer) > 60 Glucose 132 H Calcium 9.0 Impressions: Chest X-Ray 12/20/19 19:25 IMPRESSION: No change in appearance since 2012. No acute findings. Ankle X-Ray 12/21/19 00:00 IMPRESSION: IMAGE(S) OBTAINED DURING PROCEDURE. Assessment & Plan - Diagnosis (1) Closed fracture of left distal fibula Qualifiers: Encounter type: initial encounter Fracture morphology: other fracture Qualified Code(s): S82.832A - Other fracture of upper and lower end of left fibula, initial encounter for closed fracture Is this a current diagnosis for this admission?: Yes - Time Critical Time spent with patient: Less than 15 minutes Anticipated Discharge Disposition: [facility] Facility Anticipated Discharge Timeframe: within 48 hours - Plan Summary Plan Summary: Postoperative day #2 status post open reduction internal fixation left lateral malleolus fracture. The patient is nonweightbearing on the left leg. Given his poor ambulatory status prior to his fracture, he will likely require shelter facility placement. The patient has new symptoms of confusion associated with urinary retention and a positive urinalysis. The hospitalist is aware and is actively treating.
[2019-12-23 13:54] LABS: APPEARANCE,URINE CLEAR; BILIRUBIN,URINE NEGATIVE (NEGATIVE); COLOR,URINE YELLOW; GLUCOSE, URINE NEGATIVE (NEGATIVE); KETONES,URINE NEGATIVE (NEGATIVE); PROTEIN,URINE NEGATIVE (NEGATIVE); URINE SPECIFIC GRAVITY 1.013; UROBILINOGEN,URINE NEGATIVE mg/dL (<2.0)
[2019-12-23] MEDS: OXYCODONE-ACETAMINOPHEN 5-325 MG TABLET PO SCH ×2 (14:30→22:25)
--- NOTE | 2019-12-23 16:35 | PDOC PROGRESS REPORT ---
Subjective Subjective:: Patient admitted overnight for closed left spiral tib-fib fracture, orthopedic surgery consulted on admission with plans for OR for corrective surgery. Patient states he is doing well and his pain is primarily controlled. He has no complaints other than lower extremity pain at the site of his fracture on the left. 12/22/2019 Per patient and surgery documentation, surgery went well. Patient having some muscle spasms in his legs and asking for his home dose of Flexeril which I have ordered. I have also added back some additional home medications that he was taking before. Labs today are pending. Patient is working with physical therapy and he will very likely need SNF according to orthopedic surgery. Patient has no new complaints. 12/23/2019 Ordered some additional tests as patient is delirious today. I suspect he has underlying dementia which is being made acutely worse by an array of acute factors including recent anesthesia, possible hospital delirium, possible untreated pain, possible pneumonia though this is unlikely as he has clear lungs on exam, acute urinary retention. He does not have a UTI according to his UA results. Acute urinary retention certainly can and does cause acute delirium in postop patients. Smith catheter has been placed and this may correct his delirium over the next 24 to 48 hours. I also added scheduled Percocet every 12 hours as the patient cannot request pain medication and on exam he does state his leg hurts severely when I palpate it lightly. Hold narcotics for sedation/respiratory depression or if he is sleeping. We will get a portable chest x-ray to rule out pneumonia. May put him in mittens to keep him from pulling out his IV and Smith catheter. Not articulate any specific complaints today other than his left leg hurts. Reason For Visit: FALL AT HOME,LEFT FIBULA FRACTURE Physical Exam Vital Signs: Temp Pulse Resp BP Pulse Ox 97.5 F 80 20 130/82 H 99 12/23/19 11:52 12/23/19 13:49 12/23/19 13:49 12/23/19 11:52 12/23/19 13:49 Intake & Output 12/22/19 12/23/19 12/24/19 06:59 06:59 06:59 Intake Total 8861 960 60 Output Total 667 779 675 Balance 2211 285 -788 Weight 72.8 kg 73 kg General appearance: PRESENT: disheveled, well-developed, well-nourished Head exam: PRESENT: atraumatic, normocephalic Eye exam: PRESENT: conjunctiva pink Mouth exam: PRESENT: moist Respiratory exam: PRESENT: clear to auscultation annika. ABSENT: rales, rhonchi, wheezes GI/Abdominal exam: PRESENT: normal bowel sounds, soft. ABSENT: distended, guarding, mass, organolmegaly, rebound, tenderness Extremities exam: PRESENT: tenderness - Left lower extremity very tender, notable edema Neurological exam: PRESENT: alert, awake. ABSENT: oriented to person, oriented to place, oriented to time, oriented to situation Psychiatric exam: PRESENT: agitated Skin exam: PRESENT: dry, warm Results Laboratory Results: 12/22/19 16:10 12/22/19 16:10 12/22/19 12/22/19 12/23/19 16:10 16:10 13:35 WBC 10.7 H RBC 4.34 L Hgb 12.7 L Hct 38.4 MCV 89 MCH 29.2 MCHC 32.9 RDW 14.9 H Plt Count 134 L Seg Neutrophils % 72.1 Sodium 136.9 L Potassium 4.2 Chloride 100 Carbon Dioxide 28 Anion Gap 9 BUN 26 H Creatinine 0.81 Est GFR ( Amer) > 60 Glucose 132 H Calcium 9.0 Urine Color YELLOW Urine Appearance CLEAR Urine pH 5.0 Ur Specific Pavo 1.013 Urine Protein NEGATIVE Urine Glucose (UA) NEGATIVE Urine Ketones NEGATIVE Urine Blood SMALL H Urine RBC (Auto) 1 Impressions: Chest X-Ray 12/20/19 19:25 IMPRESSION: No change in appearance since 2012. No acute findings. Ankle X-Ray 12/21/19 00:00 IMPRESSION: IMAGE(S) OBTAINED DURING PROCEDURE. Assessment and Plan - Diagnosis (1) Closed fracture of left distal fibula Qualifiers: Encounter type: initial encounter Fracture morphology: other fracture Qualified Code(s): S82.832A - Other fracture of upper and lower end of left fibula, initial encounter for closed fracture Is this a current diagnosis for this admission?: Yes Plan: Orthopedic surgery consulted Imaging reviewed Pain management Surgical correction plan 12/20 DVT prophylaxis 12/21/2021 Underwent surgery overnight on 12/20, no reported complications Pain management continues, mostly controlled on current regimen, added Flexeril from home meds as well as celecoxib Very likely will need SNF placement at discharge, physical therapy working with him Orthopedic surgery following (2) Acute metabolic encephalopathy Is this a current diagnosis for this admission?: Yes Plan: Occurred on 12/22 Multifactorial: Likely underlying dementia, hospital delirium, acute urinary retention, recent anesthesia UA does not show infection Chest x-ray Smith catheter for bladder decompression Scheduled Percocet for untreated pain as patient cannot request narcotics due to delirium, hold for respiratory depression/sedation/sleeping Mittens placed for patient's protection and to avoid pulling of lines and Smith (3) Acute urinary retention Is this a current diagnosis for this admission?: Yes Plan: Smith catheter placed Positive bladder scan UA does not show infection (4) Arthritis Is this a current diagnosis for this admission?: Yes (5) Gastroesophageal reflux disease Qualifiers: Esophagitis presence: esophagitis presence not specified Qualified Code(s): K21.9 - Gastro-esophageal reflux disease without esophagitis Is this a current diagnosis for this admission?: Yes (6) Hyperlipidemia Qualifiers: Hyperlipidemia type: unspecified Qualified Code(s): E78.5 - Hyperlipidemia, unspecified Is this a current diagnosis for this admission?: Yes (7) Hypertension Qualifiers: Hypertension type: essential hypertension Qualified Code(s): I10 - Essential (primary) hypertension Is this a current diagnosis for this admission?: Yes (8) Paresis Is this a current diagnosis for this admission?: Yes - Plan Summary Summary: Patient will be admitted to the medical floor where he will receive routine supportive and symptomatic cares. Dr. Felipe will be consulted for orthopedic evaluation and treatment. Patient received morphine sulfate 2 to 4 mg IV every 2 hours on an as-needed basis for pain control. He will receive Ativan 1 mg IV every 4 hours as needed for anxiety or restlessness. The patient has a splint to the left lower extremity applied in the ER per Dr. Felipe's instructions. He will be on bedrest. He will be n.p.o. after midnight in anticipation of possible surgical intervention in the morning. He will receive IV fluids utilizing D5LR. Hypertension will be managed with IV hydralazine and/or metoprolol as required. Case management will be consulted for disposition and physical therapy will be consulted for evaluation and treatment. CBCs, metabolic profiles and additional laboratory and/or radiographic evaluations will be obtained as needed. - Time Time Spent with patient: 35 or more minutes Medications reviewed and adjusted accordingly: Yes Anticipated Discharge Disposition: [facility] Facility Anticipated Discharge Timeframe: within 72 hours - Inpatient Certification Based on my medical assessment, after consideration of the patient's comorbiditi es, presenting symptoms, or acuity I expect that the services needed warrant INPATIENT care.: Yes I certify that my determination is in accordance with my understanding of [facility]'s requirements for reasonable and necessary INPATIENT services [42 CFR 412.3e].: Yes Medical Necessity: Significant Comorbidiites Make Outpatient Treatment Too Risky, Need Close Monitoring Due to Risk of Patient Decompensation, Need for Pain Control, Risk of Complication if Not Cared For in Hospital, Risk of Diagnosis Which Will Require Inpatient Eval/Care/Monitoring
[2019-12-23 18:11] LABS: ANION GAP 8 (5-19); BLOOD UREA NITROGEN 22 mg/dL (7-20); CALCIUM 9.1 mg/dL (8.4-10.2); CARBON DIOXIDE 30 mmol/L (22-30); CHLORIDE 99 mmol/L (98-107); GLUCOSE 91 mg/dL (75-110); POTASSIUM 4.3 mmol/L (3.6-5.0)
--- NOTE | 2019-12-23 19:18 | RADIOLOGY REPORT (SQ) ---
EXAM DESCRIPTION: CHEST SINGLE VIEW IMAGES COMPLETED DATE/TIME: 12/23/2019 3:46 pm REASON FOR STUDY: AMS, possible [facility]NA COMPARISON: They would 02/13/2016. EXAM PARAMETERS: NUMBER OF VIEWS: One view. TECHNIQUE: Single frontal radiographic view of the chest acquired. RADIATION DOSE: NA LIMITATIONS: None. FINDINGS: LUNGS AND PLEURA: The lungs are hyperinflated. Biapical pleural and parenchymal scarring and scattered calcified granulomas are stable. No focal consolidation or pleural effusion. No pneum othorax. MEDIASTINUM AND HILAR STRUCTURES: No masses. Contour normal. HEART AND VASCULAR STRUCTURES: Heart normal in size. Normal vasculature. BONES: No acute findings. HARDWARE: None in the chest. OTHER: No other significant finding. IMPRESSION: No significant interval change. No acute cardiopulmonary disease. Healed granulomatous disease and hyperinflated lungs which can be seen with obstructive lung disease. TECHNICAL DOCUMENTATION: JOB ID: [id number] 2010 [employer]- All Rights Reserved Reading location - IP/workstation name: [email or web address]
[2019-12-23] MEDS: SIMVASTATIN 40 MG TABLET PO SCH (22:25)
[2019-12-24] MEDS: HEPARIN SOD (PORCINE) 5,000 UNIT/ML 1 ML VIAL SUBCUT SCH ×3 (05:47→23:23)
[2019-12-24 06:24] LABS: ANION GAP 7 (5-19); BLOOD UREA NITROGEN 22 mg/dL (7-20); CALCIUM 8.7 mg/dL (8.4-10.2); CARBON DIOXIDE 31 mmol/L (22-30); CHLORIDE 99 mmol/L (98-107); GLUCOSE 87 mg/dL (75-110); POTASSIUM 4.3 mmol/L (3.6-5.0)
[2019-12-24 08:29] LABS: ABSOLUTE BASOPHILS # (AUTO) 0.1 10^3/uL (0.0-0.2); ABSOLUTE EOSINOPHILS # (AUTO) 0.2 10^3/uL (0.0-0.6); ABSOLUTE MONOCYTES (AUTO) 0.5 10^3/uL (0.1-1.4); ABSOLUTE NEUT (AUTO) 2.6 10^3/uL (1.7-8.2); BASOPHILS % (AUTO) 1.3 % (0-2); EOSINOPHILS % (AUTO) 3.4 % (0-6); HEMATOCRIT 38.9 % (37.9-51.0); HEMOGLOBIN 12.8 g/dL (13.5-17.0); LYMPHOCYTES % (AUTO) 37.2 % (13-45); MEAN CORPUSCULAR HGB CONC 32.8 g/dL (32.0-36.0); MEAN CORPUSCULAR VOLUME 88 fl (80-97); MONOCYTES % (AUTO) 8.7 % (3-13); PLATELET COUNT 148 10^3/uL (150-450); RED BLOOD COUNT 4.41 10^6/uL (4.35-5.55); RED CELL DISTRIBUTION WIDTH 14.6 % (11.5-14.0); SEGMENTED NEUTROPHILS % (AUTO) 49.4 % (42-78); TOTAL CELLS COUNTED % (AUTO) 100 %; WHITE BLOOD COUNT 5.3 10^3/uL (4.0-10.5)
[2019-12-24] MEDS: PANTOPRAZOLE SODIUM 40 MG TABLET.DR PO SCH (10:51)
[2019-12-24] MEDS: MESALAMINE 400 MG CAPSULE.DR PO SCH (10:52)
[2019-12-24] MEDS: OXYCODONE-ACETAMINOPHEN 5-325 MG TABLET PO SCH ×2 (10:53→22:34)
[2019-12-24] MEDS: CELECOXIB 200 MG CAPSULE PO SCH ×2 (11:09→22:34)
[2019-12-24] MEDS: RINGERS SOLUTION,LACTATED 1,000 ML IV PRN (14:58)
--- NOTE | 2019-12-24 18:38 | PDOC PROGRESS REPORT ---
Subjective Subjective:: Patient admitted overnight for closed left spiral tib-fib fracture, orthopedic surgery consulted on admission with plans for OR for corrective surgery. Patient states he is doing well and his pain is primarily controlled. He has no complaints other than lower extremity pain at the site of his fracture on the left. 12/22/2019 Per patient and surgery documentation, surgery went well. Patient having some muscle spasms in his legs and asking for his home dose of Flexeril which I have ordered. I have also added back some additional home medications that he was taking before. Labs today are pending. Patient is working with physical therapy and he will very likely need SNF according to orthopedic surgery. Patient has no new complaints. 12/23/2019 Ordered some additional tests as patient is delirious today. I suspect he has underlying dementia which is being made acutely worse by an array of acute factors including recent anesthesia, possible hospital delirium, possible untreated pain, possible pneumonia though this is unlikely as he has clear lungs on exam, acute urinary retention. He does not have a UTI according to his UA results. Acute urinary retention certainly can and does cause acute delirium in postop patients. Smith catheter has been placed and this may correct his delirium over the next 24 to 48 hours. I also added scheduled Percocet every 12 hours as the patient cannot request pain medication and on exam he does state his leg hurts severely when I palpate it lightly. Hold narcotics for sedation/respiratory depression or if he is sleeping. We will get a portable chest x-ray to rule out pneumonia. May put him in mittens to keep him from pulling out his IV and Smith catheter. Not articulate any specific complaints today other than his left leg hurts. 12/24/2019 Patient seems to have turned a corner after the above interventions were instituted since yesterday. He is very calm and speaks very clearly today. He is not combative at all and he has had his restraints removed. He is alert and oriented x4. He does note he is having some intermittent mild hallucinations b ut these are diminishing with time. Overall very significant improvement from yesterday. Labs and vitals reviewed knees appear to be stable now. He has no new complaints today. I had a long discussion with his daughter yesterday and she would like him to go to a rehab facility. Patient is in agreement with this reluctantly. Reason For Visit: FALL AT HOME,LEFT FIBULA FRACTURE Physical Exam Vital Signs: Temp Pulse Resp BP Pulse Ox 97.8 F 79 20 152/76 H 100 12/24/19 14:58 12/24/19 14:58 12/24/19 14:58 12/24/19 14:58 12/24/19 14:58 Intake & Output 12/23/19 12/24/19 12/25/19 06:59 06:59 06:59 Intake Total 960 60 496 Output Total 675 7909 800 Balance 866 -1965 -930 Weight 73 kg 72 kg Exam: General appearance: PRESENT: disheveled, well-developed, well-nourished, states he feels much better today Head exam: PRESENT: atraumatic, normocephalic Eye exam: PRESENT: conjunctiva pink Mouth exam: PRESENT: moist Respiratory exam: PRESENT: clear to auscultation annika. ABSENT: rales, rhonchi, wheezes GI/Abdominal exam: PRESENT: normal bowel sounds, soft. ABSENT: distended, guarding, mass, organolmegaly, rebound, tenderness Extremities exam: PRESENT: tenderness - Left lower extremity very tender, notable edema Neurological exam: PRESENT: alert, awake. ABSENT: oriented to person, oriented to place, oriented to time, oriented to situation Psychiatric exam: PRESENT: agitated Skin exam: PRESENT: dry, warm Results Laboratory Results: 12/24/19 04:18 12/24/19 04:18 12/24/19 12/24/19 04:18 04:18 WBC 5.3 RBC 4.41 Hgb 12.8 L Hct 38.9 MCV 88 MCH 29.0 MCHC 32.8 RDW 14.6 H Plt Count 148 L Seg Neutrophils % 49.4 Sodium 136.8 L Potassium 4.3 Chloride 99 Carbon Dioxide 31 H Anion Gap 7 BUN 22 H Creatinine 0.73 Est GFR ( Amer) > 60 Glucose 87 Calcium 8.7 Impressions: Ankle X-Ray 12/21/19 00:00 IMPRESSION: IMAGE(S) OBTAINED DURING PROCEDURE. Chest X-Ray 12/23/19 00:00 IMPRESSION: No significant interval change. No acute cardiopulmonary disease. Healed granulomatous disease and hyperinflated lungs which can be seen with obstructive lung disease. Assessment and Plan - Diagnosis (1) Closed fracture of left distal fibula Qualifiers: Encounter type: initial encounter Fracture morphology: other fracture Qualified Code(s): S82.832A - Other fracture of upper and lower end of left fibula, initial encounter for closed fracture Is this a current diagnosis for this admission?: Yes Plan: Orthopedic surgery consulted Imaging reviewed Pain management Surgical correction plan 12/20 DVT prophylaxis 12/21/2021 Underwent surgery overnight on 12/20, no reported complications Pain management continues, mostly controlled on current regimen, added Flexeril from home meds as well as celecoxib Very likely will need SNF placement at discharge, physical therapy working with him Orthopedic surgery following 12/24/2019 Pain very well controlled on scheduled low-dose Percocet, continue (2) Acute metabolic encephalopathy Is this a current diagnosis for this admission?: Yes Plan: Occurred on 12/22 Multifactorial: Likely underlying dementia, hospital delirium, acute urinary retention, recent anesthesia UA does not show infection Chest x-ray Smith catheter for bladder decompression Scheduled Percocet for untreated pain as patient cannot request narcotics due to delirium, hold for respiratory depression/sedation/sleeping Mittens placed for patient's protection and to avoid pulling of lines and Smith 12/24/2019 Significant improvement from yesterday with all the above in interventions instituted, out of restraints and fully alert and oriented x4. Continue pain management and Smith catheter (3) Acute urinary retention Is this a current diagnosis for this admission?: Yes Plan: Smith catheter placed Positive bladder scan UA does not show infection 12/24/2019 Per my discussion with his daughter, she states he has had problems with his prostate being too large in the past but she does not remember him having any urinary retention Start Flomax Continue Smith Needs follow-up with urology (4) Arthritis Is this a current diagnosis for this admission?: Yes (5) Gastroesophageal reflux disease Qualifiers: Esophagitis presence: esophagitis presence not specified Qualified Code(s): K21.9 - Gastro-esophageal reflux disease without esophagitis Is this a current diagnosis for this admission?: Yes (6) Hyperlipidemia Qualifiers: Hyperlipidemia type: unspecified Qualified Code(s): E78.5 - Hyperlipidemia, unspecified Is this a current diagnosis for this admission?: Yes (7) Hypertension Qualifiers: Hypertension type: essential hypertension Qualified Code(s): I10 - Essential (primary) hypertension Is this a current diagnosis for this admission?: Yes (8) Paresis Is this a current diagnosis for this admission?: Yes - Plan Summary Summary: Patient will be admitted to the medical floor where he will receive routine supportive and symptomatic cares. Dr. Felipe will be consulted for orthopedic evaluation and treatment. Patient received morphine sulfate 2 to 4 mg IV every 2 hours on an as-needed basis for pain control. He will receive Ativan 1 mg IV every 4 hours as needed for anxiety or restlessness. The patient has a splint to the left lower extremity applied in the ER per Dr. Felipe's instructions. He will be on bedrest. He will be n.p.o. after midnight in anticipation of possible surgical intervention in the morning. He will receive IV fluids utilizing D5LR. Hypertension will be managed with IV hydralazine and/or metoprolol as required. Case management will be consulted for disposition and physical therapy will be consulted for evaluation and treatment. CBCs, metabolic profiles and additional laboratory and/or radiographic evaluations will be obtained as needed. - Time Time Spent with patient: 25-34 minutes Medications reviewed and adjusted accordingly: Yes Anticipated Discharge Disposition: Longterm Facility Anticipated Discharge Timeframe: within 72 hours - Inpatient Certification Based on my medical assessment, after consideration of the patient's comorbidities, presenting symptoms, or acuity I expect that the services needed warrant INPATIENT care.: Yes I certify that my determination is in accordance with my understanding of Medicare's requirements for reasonable and necessary INPATIENT services [42 CFR 412.3e].: Yes Medical Necessity: Significant Comorbidiites Make Outpatient Treatment Too Risky, Need Close Monitoring Due to Risk of Patient Decompensation, Need for Pain Control, Risk of Complication if Not Cared For in Hospital, Risk of Diagnosis Which Will Require Inpatient Eval/Care/Monitoring
[2019-12-24] MEDS: SIMVASTATIN 40 MG TABLET PO SCH (22:34)
[2019-12-24] MEDS: TAMSULOSIN HCL 0.4 MG CAP.SR.24H PO SCH (22:36)
[2019-12-25] MEDS: HEPARIN SOD (PORCINE) 5,000 UNIT/ML 1 ML VIAL SUBCUT SCH ×2 (05:31→14:59)
[2019-12-25 06:01] LABS: ABSOLUTE BASOPHILS # (AUTO) 0.1 10^3/uL (0.0-0.2); ABSOLUTE EOSINOPHILS # (AUTO) 0.2 10^3/uL (0.0-0.6); ABSOLUTE LYMPHOCYTES (AUTO) 1.9 10^3/uL (0.5-4.7); ABSOLUTE MONOCYTES (AUTO) 0.4 10^3/uL (0.1-1.4); ABSOLUTE NEUT (AUTO) 3.1 10^3/uL (1.7-8.2); BASOPHILS % (AUTO) 0.9 % (0-2); EOSINOPHILS % (AUTO) 2.7 % (0-6); HEMATOCRIT 37.2 % (37.9-51.0); HEMOGLOBIN 12.4 g/dL (13.5-17.0); LYMPHOCYTES % (AUTO) 33.9 % (13-45); MEAN CORPUSCULAR HEMOGLOBIN 29.1 pg (27.0-33.4); MEAN CORPUSCULAR HGB CONC 33.3 g/dL (32.0-36.0); MEAN CORPUSCULAR VOLUME 87 fl (80-97); MONOCYTES % (AUTO) 7.1 % (3-13); PLATELET COUNT 162 10^3/uL (150-450); RED BLOOD COUNT 4.26 10^6/uL (4.35-5.55); RED CELL DISTRIBUTION WIDTH 14.7 % (11.5-14.0); SEGMENTED NEUTROPHILS % (AUTO) 55.4 % (42-78); TOTAL CELLS COUNTED % (AUTO) 100 %; WHITE BLOOD COUNT 5.6 10^3/uL (4.0-10.5)
[2019-12-25 06:21] LABS: ANION GAP 8 (5-19); BLOOD UREA NITROGEN 21 mg/dL (7-20); CALCIUM 8.5 mg/dL (8.4-10.2); CARBON DIOXIDE 29 mmol/L (22-30); CHLORIDE 101 mmol/L (98-107); GLUCOSE 91 mg/dL (75-110); POTASSIUM 4.3 mmol/L (3.6-5.0)
[2019-12-25] MEDS: CELECOXIB 200 MG CAPSULE PO SCH ×2 (09:49→21:23)
[2019-12-25] MEDS: OXYCODONE-ACETAMINOPHEN 5-325 MG TABLET PO SCH ×2 (09:49→21:07)
[2019-12-25] MEDS: PANTOPRAZOLE SODIUM 40 MG TABLET.DR PO SCH (09:49)
[2019-12-25] MEDS: MESALAMINE 400 MG CAPSULE.DR PO SCH (09:50)
--- NOTE | 2019-12-25 15:06 | PDOC PROGRESS REPORT ---
Subjective Subjective:: Patient admitted overnight for closed left spiral tib-fib fracture, orthopedic surgery consulted on admission with plans for OR for corrective surgery. Patient states he is doing well and his pain is primarily controlled. He has no complaints other than lower extremity pain at the site of his fracture on the left. 12/22/2019 Per patient and surgery documentation, surgery went well. Patient having some muscle spasms in his legs and asking for his home dose of Flexeril which I have ordered. I have also added back some additional home medications that he was taking before. Labs today are pending. Patient is working with physical therapy and he will very likely need SNF according to orthopedic surgery. Patient has no new complaints. 12/23/2019 Ordered some additional tests as patient is delirious today. I suspect he has underlying dementia which is being made acutely worse by an array of acute factors including recent anesthesia, possible hospital delirium, possible untreated pain, possible pneumonia though this is unlikely as he has clear lungs on exam, acute urinary retention. He does not have a UTI according to his UA results. Acute urinary retention certainly can and does cause acute delirium in postop patients. Smith catheter has been placed and this may correct his delirium over the next 24 to 48 hours. I also added scheduled Percocet every 12 hours as the patient cannot request pain medication and on exam he does state his leg hurts severely when I palpate it lightly. Hold narcotics for sedation/respiratory depression or if he is sleeping. We will get a portable chest x-ray to rule out pneumonia. May put him in mittens to keep him from pulling out his IV and Smith catheter. Not articulate any specific complaints today other than his left leg hurts. 12/24/2019 Patient seems to have turned a corner after the above interventions were instituted since yesterday. He is very calm and speaks very clearly today. He is not combative at all and he has had his restraints removed. He is alert and oriented x4. He does note he is having some intermittent mild hallucinations b ut these are diminishing with time. Overall very significant improvement from yesterday. Labs and vitals reviewed knees appear to be stable now. He has no new complaints today. I had a long discussion with his daughter yesterday and she would like him to go to a rehab facility. Patient is in agreement with this reluctantly. 12/25/2019 Patient is still doing quite well and is very calm today. He is alert and oriented x4 except he does not know the exact day of the month. He is very talkative today and tells many stories about his past. Case management is working on getting him placement at a nursing facility per his daughter's request. Patient is still having some mild pain in his left lower extremity but it is well controlled on the current regimen. In the next few days, would be good to change his narcotics to as needed given he is now able to request pain medication when he needs it. He has no new complaints today. Reason For Visit: FALL AT HOME,LEFT FIBULA FRACTURE Physical Exam Vital Signs: Temp Pulse Resp BP Pulse Ox 97.6 F 79 10 L 129/62 H 95 12/25/19 11:25 12/25/19 11:25 12/25/19 11:25 12/25/19 11:25 12/25/19 11:25 Intake & Output 12/24/19 12/25/19 12/26/19 06:59 06:59 06:59 Intake Total 60 1296 240 Output Total 2024 2650 300 Balance -1965 -1354 -60 Weight 72 kg 72 kg Exam: General appearance: PRESENT: well-developed, well-nourished, states he feels well and is happily telling stories about his past Head exam: PRESENT: atraumatic, normocephalic Eye exam: PRESENT: conjunctiva pink Mouth exam: PRESENT: moist Respiratory exam: PRESENT: clear to auscultation annika. ABSENT: rales, rhonchi, wheezes GI/Abdominal exam: PRESENT: normal bowel sounds, soft. ABSENT: distended, guarding, mass, organolmegaly, rebound, tenderness Extremities exam: PRESENT: tenderness - Left lower extremity mild to moderately tender, mild edema Neurological exam: PRESENT: alert, awake. ABSENT: oriented to person, oriented to place, oriented to time, oriented to situation Psychiatric exam: PRESENT: agitated Skin exam: PRESENT: dry, warm Results Laboratory Results: 12/25/19 04:34 12/25/19 04:34 12/25/19 12/25/19 04:34 04:34 WBC 5.6 RBC 4.26 L Hgb 12.4 L Hct 37.2 L MCV 87 MCH 29.1 MCHC 33.3 RDW 14.7 H Plt Count 162 Seg Neutrophils % 55.4 Sodium 137.5 Potassium 4.3 Chloride 101 Carbon Dioxide 29 Anion Gap 8 BUN 21 H Creatinine 0.73 Est GFR ( Amer) > 60 Glucose 91 Calcium 8.5 Impressions: Ankle X-Ray 12/21/19 00:00 IMPRESSION: IMAGE(S) OBTAINED DURING PROCEDURE. Chest X-Ray 12/23/19 00:00 IMPRESSION: No significant interval change. No acute cardiopulmonary disease. Healed granulomatous disease and hyperinflated lungs which can be seen with obstructive lung disease. Assessment and Plan - Diagnosis (1) Closed fracture of left distal fibula Qualifiers: Encounter type: initial encounter Fracture morphology: other fracture Qualified Code(s): S82.832A - Other fracture of upper and lower end of left fibula, initial encounter for closed fracture Is this a current diagnosis for this admission?: Yes Plan: Orthopedic surgery consulted Imaging reviewed Pain management Surgical correction plan 12/20 DVT prophylaxis 12/21/2021 Underwent surgery overnight on 12/20, no reported complications Pain management continues, mostly controlled on current regimen, added Flexeril from home meds as well as celecoxib Very likely will need SNF placement at discharge, physical therapy working with him Orthopedic surgery following 12/24/2019 Pain very well controlled on scheduled low-dose Percocet, continue 12/25/2019 Plan to change narcotics to as needed in the next 24 to 48 hours. Patient should be able to request pain medicine when he needs it (2) Acute metabolic encephalopathy Is this a current diagnosis for this admission?: Yes Plan: Occurred on 12/22 Multifactorial: Likely underlying dementia, hospital delirium, acute urinary retention, recent anesthesia UA does not show infection Chest x-ray Smith catheter for bladder decompression Scheduled Percocet for untreated pain as patient cannot request narcotics due to delirium, hold for respiratory depression/sedation/sleeping Mittens placed for patient's protection and to avoid pulling of lines and Smith 12/24/2019 Significant improvement from yesterday with all the above in interventions instituted, out of restraints and fully alert and oriented x4. Continue pain management and Smith catheter 12/25/2019 Per patient, he has had damage to his skull/brain when he had a fall with a brain bleed years ago. This may explain his higher than average susceptibility to delirium on metabolic encephalopathy. On exam, there is a visible healed dent on the superior aspect of his skull on the right Continues to improve daily, states she is having less hallucinations but still having a few episodes each day. Pain management, bladder decompression, started Flomax yesterday as his daughter states he has a chronically enlarged prostate that is untreated until now (3) Acute urinary retention Is this a current diagnosis for this admission?: Yes Plan: Smith catheter placed Positive bladder scan UA does not show infection 12/24/2019 Per my discussion with his daughter, she states he has had problems with his prostate being too large in the past but she does not remember him having any urinary retention Start Flomax Continue Smith Needs follow-up with urology 12/25/2019 Can try a void trial tomorrow, if he fails he should be discharged with a Smith catheter and follow-up with a urologist within 1 week Continue Flomax (4) Arthritis Is this a current diagnosis for this admission?: Yes (5) Gastroesophageal reflux disease Qualifiers: Esophagitis presence: esophagitis presence not specified Qualified Code(s): K21.9 - Gastro-esophageal reflux disease without esophagitis Is this a current diagnosis for this admission?: Yes (6) Hyperlipidemia Qualifiers: Hyperlipidemia type: unspecified Qualified Code(s): E78.5 - Hyperlipidemia, unspecified Is this a current diagnosis for this admission?: Yes (7) Hypertension Qualifiers: Hypertension type: essential hypertension Qualified Code(s): I10 - [facility] l (primary) hypertension Is this a current diagnosis for this admission?: Yes (8) Paresis Is this a current diagnosis for this admission?: Yes - Plan Summary Summary: Patient will be admitted to the medical floor where he will receive routine supportive and symptomatic cares. Dr. Felipe will be consulted for orthopedic evaluation and treatment. Patient received morphine sulfate 2 to 4 mg IV every 2 hours on an as-needed basis for pain control. He will receive Ativan 1 mg IV every 4 hours as needed for anxiety or restlessness. The patient has a splint to the left lower extremity applied in the ER per Dr. Felipe's instructions. He will be on bedrest. He will be n.p.o. after midnight in anticipation of possible surgical intervention in the morning. He will receive IV fluids utilizing D5LR. Hypertension will be managed with IV hydralazine and/or metoprolol as required. Case management will be consulted for disposition and physical therapy will be consulted for evaluation and treatment. CBCs, metabolic profiles and additional laboratory and/or radiographic evaluations will be obtained as needed. - Time Time Spent with patient: 25-34 minutes Medications reviewed and adjusted accordingly: Yes Anticipated Discharge Disposition: Longterm Facility Anticipated Discharge Timeframe: within 48 hours - Inpatient Certification Based on my medical assessment, after consideration of the patient's comorbidities, presenting symptoms, or acuity I expect that the services needed warrant INPATIENT care.: Yes I certify that my determination is in accordance with my understanding of Medicare's requirements for reasonable and necessary INPATIENT services [42 CFR 412.3e].: Yes Medical Necessity: Significant Comorbidiites Make Outpatient Treatment Too Risky, Need Close Monitoring Due to Risk of Patient Decompensation, Need for Pain Control, Risk of Complication if Not Cared For in Hospital, Risk of Diagnosis Which Will Require Inpatient Eval/Care/Monitoring
[2019-12-25] MEDS: HYDROCORTISONE ACETATE 25 MG SUPP.RECT PR SCH (18:16)
[2019-12-25] MEDS: TAMSULOSIN HCL 0.4 MG CAP.SR.24H PO SCH (18:16)
[2019-12-25] MEDS: SIMVASTATIN 40 MG TABLET PO SCH (21:07)
[2019-12-25] MEDS: CYCLOBENZAPRINE HCL 10 MG TABLET PO PRN (21:08)
[2019-12-26 05:58] LABS: ANION GAP 8 (5-19); BLOOD UREA NITROGEN 22 mg/dL (7-20); CALCIUM 8.9 mg/dL (8.4-10.2); CARBON DIOXIDE 29 mmol/L (22-30); CHLORIDE 101 mmol/L (98-107); GLUCOSE 100 mg/dL (75-110); POTASSIUM 4.4 mmol/L (3.6-5.0)
[2019-12-26] MEDS: PANTOPRAZOLE SODIUM 40 MG TABLET.DR PO SCH (10:51)
[2019-12-26] MEDS: HYDROCORTISONE ACETATE 25 MG SUPP.RECT PR SCH (10:51)
[2019-12-26] MEDS: MESALAMINE 400 MG CAPSULE.DR PO SCH (10:51)
[2019-12-26] MEDS: CELECOXIB 200 MG CAPSULE PO SCH ×2 (10:51→22:24)
[2019-12-26] MEDS: OXYCODONE-ACETAMINOPHEN 5-325 MG TABLET PO SCH (10:51)
[2019-12-26] MEDS: OXYCODONE-ACETAMINOPHEN 5-325 MG TABLET PO PRN ×2 (15:50→22:22)
--- NOTE | 2019-12-26 16:37 | PDOC PROGRESS REPORT ---
Subjective Progress Note for:: 12/26/19 Subjective:: Patient was seen on afternoon rounds with daughter present. MS ShaunaW, also present to discuss disposition. Patient was found resting in bed, comfortably, on room air. He is alert and oriented x3. He tells me that he is very tired after working with physical therapy today; was able to sit to the edge of the bed with max assist x2. He tells me that he feels like he is having difficulty with his right foot. Otherwise, he is noted to be quite fatigued and falls asleep during our conversation. He does deny chest pain, difficulty breathing, abdominal pain, nausea and vomiting. He has no questions or concerns at this time. No concerns per nursing. Discussed with patient's daughter SNF. I recommended that she review the list and choose 3-4 facilities that she would be comfortable with us initiating referral process as picking one facility that time can be quite time-consuming and potentially lead to him not receiving a bed offer as capacity and availa bility fluctuates quite frequently right now. I also asked about long-term plan; daughter tells me that they are not interested in long-term penitentiary or [facility] facility. Goal is to rehabilitate and then return to home with 24-hour in-home care. Daughter informs me that at baseline, patient is primarily chair bound. He has difficulty with dragging his right foot. Typically he is a 1 person assist with front wheel walker 10 to 15 feet to commode. Patient is currently nonweightbearing to the left the left foot x4-6 weeks. Reason For Visit: FALL AT HOME,LEFT FIBULA FRACTURE Physical Exam Vital Signs: Temp Pulse Resp BP Pulse Ox 98.1 F 78 16 145/68 H 95 12/26/19 10:56 12/26/19 10:56 12/26/19 10:56 12/26/19 10:56 12/26/19 10:56 Intake & Output 12/25/19 12/26/19 12/27/19 06:59 06:59 06:59 Intake Total 1296 590 840 Output Total 4740 3600 1000 Balance -3464 -8247 -160 Weight 72 kg 72 kg General appearance: PRESENT: no acute distress, cooperative, well-developed, well-nourished Head exam: PRESENT: atraumatic, normocephalic Eye exam: PRESENT: conjunctiva pink, EOMI, PERRLA. ABSENT: scleral icterus Ear exam: PRESENT: normal external ear exam Mouth exam: PRESENT: moist, tongue midline Respiratory exam: PRESENT: clear to auscultation annika, symmetrical, unlabored. ABSENT: rales, rhonchi, wheezes Cardiovascular exam: PRESENT: RRR. ABSENT: diastolic murmur, rubs, systolic murmur Vascular exam: PRESENT: normal capillary refill Extremities exam: PRESENT: tenderness - Healthy. ABSENT: calf tenderness, clubbing, pedal edema Neurological exam: PRESENT: alert, awake, oriented to person, oriented to place, oriented to situation, CN II-XII grossly intact, other - Fatigue. ABSENT: motor sensory deficit Psychiatric exam: PRESENT: appropriate affect, normal mood. ABSENT: homicidal ideation, suicidal ideation Skin exam: PRESENT: dry, intact, warm. ABSENT: cyanosis, rash Results Laboratory Results: 12/25/19 04:34 12/26/19 04:58 12/26/19 04:58 Sodium 138.4 Potassium 4.4 Chloride 101 Carbon Dioxide 29 Anion Gap 8 BUN 22 H Creatinine 0.71 Est GFR ( Amer) > 60 Glucose 100 Calcium 8.9 Impressions: Ankle X-Ray 12/21/19 00:00 IMPRESSION: IMAGE(S) OBTAINED DURING PROCEDURE. Chest X-Ray 12/23/19 00:00 IMPRESSION: No significant interval change. No acute cardiopulmonary disease. Healed granulomatous disease and hyperinflated lungs which can be seen with obstructive lung disease. Assessment and Plan - Diagnosis (1) Closed fracture of left distal fibula Qualifiers: Encounter type: initial encounter Fracture morphology: other fracture Qualified Code(s): S82.832A - Other fracture of upper and lower end of left fibula, initial encounter for closed fracture Is this a current diagnosis for this admission?: Yes Plan: Orthopedic surgery consulted Imaging reviewed Pain management Surgical correction plan 12/20 DVT prophylaxis 12/21/2021 Underwent surgery overnight on 12/20, no reported complications Pain management continues, mostly controlled on current regimen, added Flexeril from home meds as well as celecoxib Very likely will need SNF placement at discharge, physical therapy working with him Orthopedic surgery following 12/24/2019 Pain very well controlled on scheduled low-dose Percocet, continue 12/25/2019 Plan to change narcotics to as needed in the next 24 to 48 hours. Patient should be able to request pain medicine when he needs it 12/26/2019 Percocet decreased to 5 mg every 6 hours. Nonweightbearing x4 to 6 weeks. Continue PT/OT services. Discharge planning consulted for disposition. Stable for discharge once placement made. Discussed with the patient's daughter recommendations that she allow us to send referral to multiple facilities at the same time to expedite process. (2) Acute metabolic encephalopathy Is this a current diagnosis for this admission?: Yes Plan: Occurred on 12/22 Multifactorial: Likely underlying dementia, hospital delirium, acute urinary retention, recent anesthesia UA does not show infection Chest x-ray Smith catheter for bladder decompression Scheduled Percocet for untreated pain as patient cannot request narcotics due to delirium, hold for respiratory depression/sedation/sleeping Mittens placed for patient's protection and to avoid pulling of lines and Smith 12/24/2019 Significant improvement from yesterday with all the above in interventions instituted, out of restraints and fully alert and oriented x4. Continue pain management and Smith catheter 12/25/2019 Per patient, he has had damage to his skull/brain when he had a fall with a brain bleed years ago. This may explain his higher than average susceptibility to delirium on metabolic encephalopathy. On exam, there is a visible healed dent on the superior aspect of his skull on the right Continues to improve daily, states she is having less hallucinations but still having a few episodes each day. Pain management, bladder decompression, started Flomax yesterday as his daughter states he has a chronically enlarged prostate that is untreated until now 12/26/2019 Currently alert and oriented to person, place, situation. Noted to be quite fatigued. Daughter has asked that we decrease his pain medication regiment. Continue supportive care. Monitor for reoccurrence of urinary retention. (3) Acute urinary retention Is this a current diagnosis for this admission?: Yes Plan: Smith catheter placed Positive bladder scan UA does not show infection 12/24/2019 Per my discussion with his daughter, she states he has had problems with his prostate being too large in the past but she does not remember him having any urinary retention Start Flomax Continue Smith Needs follow-up with urology 12/25/2019 Can try a void trial tomorrow, if he fails he should be discharged with a Smith catheter and follow-up with a urologist within 1 week Continue Flomax 12/26/2019 Smith discontinued. Monitor for urinary retention. Continue Flomax. (4) Arthritis Is this a current diagnosis for this admission?: Yes Plan: Pain management (5) Gastroesophageal reflux disease Qualifiers: Esophagitis presence: esophagitis presence not specified Qualified Code(s): K21.9 - Gastro-esophageal reflux disease without esophagitis Is this a current diagnosis for this admission?: Yes Plan: Antacids (6) Hyperlipidemia Qualifiers: Hyperlipidemia type: unspecified Qualified Code(s): E78.5 - Hyperlipidemia, unspecified Is this a current diagnosis for this admission?: Yes (7) Hypertension Qualifiers: Hypertension type: essential hypertension Qualified Code(s): I10 - Essential (primary) hypertension Is this a current diagnosis for this admission?: Yes Plan: Resume home dose Vasotec. - Time Time Spent with patient: 35 or more minutes Medications reviewed and adjusted accordingly: Yes Anticipated Discharge Disposition: Long-Term Facility Anticipated Discharge Timeframe: when bed available
[2019-12-26] MEDS: CYCLOBENZAPRINE HCL 10 MG TABLET PO PRN ×2 (17:54→22:22)
[2019-12-26] MEDS: TAMSULOSIN HCL 0.4 MG CAP.SR.24H PO SCH (17:54)
[2019-12-26] MEDS ORDERED: TADALAFIL 5 MG PO SCH (22:00)
[2019-12-26] MEDS: SIMVASTATIN 40 MG TABLET PO SCH (22:21)
[2019-12-26] MEDS: OXYBUTYNIN CHLORIDE 5 MG TABLET PO SCH (22:21)
[2019-12-27 06:41] LABS: HEMATOCRIT 36.5 % (37.9-51.0); MEAN CORPUSCULAR HGB CONC 32.8 g/dL (32.0-36.0); MEAN CORPUSCULAR VOLUME 89 fl (80-97); PLATELET COUNT 175 10^3/uL (150-450); RED BLOOD COUNT 4.12 10^6/uL (4.35-5.55); RED CELL DISTRIBUTION WIDTH 14.7 % (11.5-14.0); WHITE BLOOD COUNT 5.2 10^3/uL (4.0-10.5)
[2019-12-27 07:01] LABS: ANION GAP 5 (5-19); BLOOD UREA NITROGEN 22 mg/dL (7-20); CALCIUM 8.7 mg/dL (8.4-10.2); CARBON DIOXIDE 31 mmol/L (22-30); CHLORIDE 103 mmol/L (98-107); GLUCOSE 86 mg/dL (75-110); POTASSIUM 4.7 mmol/L (3.6-5.0)
[2019-12-27] MEDS: PANTOPRAZOLE SODIUM 40 MG TABLET.DR PO SCH (07:59)
[2019-12-27] MEDS: RINGERS SOLUTION,LACTATED 1,000 ML IV PRN (09:46)
[2019-12-27] MEDS: CELECOXIB 200 MG CAPSULE PO SCH ×2 (09:48→21:16)
[2019-12-27] MEDS: ENALAPRIL MALEATE 10 MG TABLET PO SCH (09:48)
[2019-12-27] MEDS: OXYBUTYNIN CHLORIDE 5 MG TABLET PO SCH ×2 (09:48→21:16)
[2019-12-27] MEDS: MESALAMINE 400 MG CAPSULE.DR PO SCH (09:48)
[2019-12-27] MEDS ORDERED: (PENDING PHARMACY ID) (Oxybutynin Chloride [Oxybutynin Chloride Er] 10 MG) PO SCH (10:00)
[2019-12-27] MEDS: HYDROCORTISONE ACETATE 25 MG SUPP.RECT PR SCH (10:17)
--- NOTE | 2019-12-27 10:44 | PDOC PROGRESS REPORT ---
Subjective Progress Note for:: 12/27/19 Subjective:: 84 year old male who presents the emergency room via EMS with a 1 day history of left ankle pain. He admits that while getting up out of his lift chair, yesterday, he lost his balance and fell, immediately experiencing severe sharp pain in his left ankle worsened by movement and attempted weightbearing. The pain has been constant since the injury and is nonradiating. He denies other associated or accompanying signs and symptoms. He denies prior similar episo kenyon. He has not identified any additional aggravating or ameliorating factors for his left ankle pain. In the emergency room he was found to have a spiral fracture of the distal left fibula with minimal displacement. Dr. Felipe was consulted for orthopedic surgery by the emergency room provider and asked that the patient be admitted by the hospitalist service for his evaluation and treatment on a consultation basis. Patient was subsequently admitted to the hospital for further evaluation treatment. [id number]-old male came to the emergency room with complaints of left ankle pain, found to have displaced fracture of the left lateral malleolus status post open reduction internal fixation of the left displaced lateral malleolus fracture was done. Patient is waiting for placement at this time. No acute events in the last 24 hours afebrile. Reason For Visit: FALL AT HOME,LEFT FIBULA FRACTURE Physical Exam Vital Signs: Temp Pulse Resp BP Pulse Ox 97.9 F 79 16 133/62 H 95 12/27/19 10:00 12/27/19 07:39 12/27/19 07:39 12/27/19 07:39 12/27/19 07:39 Intake & Output 12/26/19 12/27/19 12/28/19 06:59 06:59 06:59 Intake Total 590 840 Output Total 2450 1999 Balance -1860 -1160 Weight 72 kg 74.6 kg General appearance: PRESENT: no acute distress, cooperative, well-developed Head exam: PRESENT: atraumatic Eye exam: PRESENT: PERRLA Mouth exam: PRESENT: moist, tongue midline Teeth exam: PRESENT: poor dentation Neck exam: ABSENT: carotid bruit, JVD, lymphadenopathy, thyromegaly Respiratory exam: PRESENT: decreased breath sounds Cardiovascular exam: PRESENT: RRR. ABSENT: diastolic murmur, rubs, systolic murmur Pulses: PRESENT: normal dorsalis pedis pul GI/Abdominal exam: PRESENT: normal bowel sounds, soft. ABSENT: distended, guarding, mass, organolmegaly, rebound, tenderness Rectal exam: PRESENT: deferred Extremities exam: PRESENT: full ROM. ABSENT: calf tenderness, clubbing, pedal edema Neurological exam: PRESENT: alert, awake, oriented to person, oriented to place, oriented to time, oriented to situation, CN II-XII grossly intact. ABSENT: motor sensory deficit Psychiatric exam: PRESENT: appropriate affect, normal mood. ABSENT: homicidal ideation, suicidal ideation Results Laboratory Results: 12/27/19 05:45 12/27/19 05:45 12/27/19 12/27/19 05:45 05:45 WBC 5.2 RBC 4.12 L Hgb 12.0 L Hct 36.5 L MCV 89 MCH 29.0 MCHC 32.8 RDW 14.7 H Plt Count 175 Sodium 138.9 Potassium 4.7 Chloride 103 Carbon Dioxide 31 H Anion Gap 5 BUN 22 H Creatinine 0.86 Est GFR ( Amer) > 60 Glucose 86 Calcium 8.7 Impressions: Ankle X-Ray 12/21/19 00:00 IMPRESSION: IMAGE(S) OBTAINED DURING PROCEDURE. Chest X-Ray 12/23/19 00:00 IMPRESSION: No significant interval change. No acute cardiopulmonary disease. Healed granulomatous disease and hyperinflated lungs which can be seen with ob structive lung disease. Assessment and Plan - Diagnosis (1) Closed fracture of left distal fibula Qualifiers: Encounter type: initial encounter Fracture morphology: other fracture Qualified Code(s): S82.832A - Other fracture of upper and lower end of left fi bula, initial encounter for closed fracture Is this a current diagnosis for this admission?: Yes Plan: Orthopedic surgery consulted Imaging reviewed Pain management Surgical correction plan 12/20 DVT prophylaxis 12/21/2021 Underwent surgery overnight on 12/20, no reported complications Pain management continues, mostly controlled on current regimen, added Flexeril from home meds as well as celecoxib Very likely will need SNF placement at discharge, physical therapy working with him Orthopedic surgery following 12/24/2019 Pain very well controlled on scheduled low-dose Percocet, continue 12/25/2019 Plan to change narcotics to as needed in the next 24 to 48 hours. Patient should be able to request pain medicine when he needs it 12/26/2019 Percocet decreased to 5 mg every 6 hours. Nonweightbearing x4 to 6 weeks. Continue PT/OT services. Discharge planning consulted for disposition. Stable for discharge once placement made. Discussed with the patient's daughter recommendations that she allow us to send referral to multiple facilities at the same time to expedite process. 12/27/2019-patient with left lower leg boot not in distress comfortable intubated waiting for placement. (2) Acute metabolic encephalopathy Is this a current diagnosis for this admission?: Yes Plan: Occurred on 12/22 Multifactorial: Likely underlying dementia, hospital delirium, acute urinary retention, recent anesthesia UA does not show infection Chest x-ray Smith catheter for bladder decompression Scheduled Percocet for untreated pain as patient cannot request narcotics due to delirium, hold for respiratory depression/sedation/sleeping Mittens placed for patient's protection and to avoid pulling of lines and Smith 12/24/2019 Significant improvement from yesterday with all the above in interventions instituted, out of restraints and fully alert and oriented x4. Continue pain management and Smith catheter 12/25/2019 Per patient, he has had damage to his skull/brain when he had a fall with a brain bleed years ago. This may explain his higher than average susceptibility to delirium on metabolic encephalopathy. On exam, there is a visible healed dent on the superior aspect of his skull on the right Continues to improve daily, states she is having less hallucinations but still having a few episodes each day. Pain management, bladder decompression, started Flomax yesterday as his daughter states he has a chronically enlarged prostate that is untreated until now 12/26/2019 Currently alert and oriented to person, place, situation. Noted to be quite fatigued. Daughter has asked that we decrease his pain medication regiment. Continue supportive care. Monitor for reoccurrence of urinary retention. 12/27/19-elderly male comfortably in the bed cooperative requesting to speak to his family members. He is aware that he is going to a intermediate facility at this time. (3) Acute urinary retention Is this a current diagnosis for this admission?: Yes Plan: Smith catheter placed Positive bladder scan UA does not show infection 12/24/2019 Per my discussion with his daughter, she states he has had problems with his prostate being too large in the past but she does not remember him having any urinary retention Start Flomax Continue Smith Needs follow-up with urology 12/25/2019 Can try a void trial tomorrow, if he fails he should be discharged with a Smith catheter and follow-up with a urologist within 1 week Continue Flomax 12/26/2019 Smith discontinued. Monitor for urinary retention. Continue Flomax. (4) Arthritis Is this a current diagnosis for this admission?: Yes Plan: Pain management (5) Hypertension Qualifiers: Hypertension type: essential hypertension Qualified Code(s): I10 - Essential (primary) hypertension Is this a current diagnosis for this admission?: No Plan: Resume home dose Vasotec. 12/27/2019-patient blood pressure today is 145/68. Stable. Plan is to continue Vaseretic at this time. - Time Anticipated Discharge Disposition: Custodial Facility Anticipated Discharge Timeframe: within 48 hours
[2019-12-27] MEDS: TAMSULOSIN HCL 0.4 MG CAP.SR.24H PO SCH (17:21)
[2019-12-27] MEDS: SIMVASTATIN 40 MG TABLET PO SCH (21:16)
[2019-12-27] MEDS: CYCLOBENZAPRINE HCL 10 MG TABLET PO PRN (21:16)
[2019-12-27] MEDS: CITALOPRAM HYDROBROMIDE 20 MG TABLET PO SCH (21:16)
[2019-12-28] MEDS: PANTOPRAZOLE SODIUM 40 MG TABLET.DR PO SCH (06:03)
--- NOTE | 2019-12-28 09:22 | PDOC PROGRESS REPORT ---
Subjective Progress Note for:: 12/28/19 Subjective:: 84 year old male who presents the emergency room via EMS with a 1 day history of left ankle pain. He admits that while getting up out of his lift chair, yesterday, he lost his balance and fell, immediately experiencing severe sharp pain in his left ankle worsened by movement and attempted weightbearing. The pain has been constant since the injury and is nonradiating. He denies other associated or accompanying signs and symptoms. He denies prior similar episo kenyon. He has not identified any additional aggravating or ameliorating factors for his left ankle pain. In the emergency room he was found to have a spiral fracture of the distal left fibula with minimal displacement. Dr. Felipe was consulted for orthopedic surgery by the emergency room provider and asked that the patient be admitted by the hospitalist service for his evaluation and treatment on a consultation basis. Patient was subsequently admitted to the hospital for further evaluation treatment. [id number]-old male came to the emergency room with complaints of left ankle pain, found to have displaced fracture of the left lateral malleolus status post open reduction internal fixation of the left displaced lateral malleolus fracture was done. Patient is waiting for placement at this time. No acute events in the last 24 hours afebrile. 12/28/2019-no acute events in the last 24 hours. Afebrile. He was admitted for a displaced fracture of the left lateral malleolus status post open reduction internal fixation. Waiting for bed placement. Reason For Visit: FALL AT HOME,LEFT FIBULA FRACTURE Physical Exam Vital Signs: Temp Pulse Resp BP Pulse Ox 97.6 F 72 18 106/51 L 96 12/28/19 08:02 12/28/19 08:02 12/28/19 08:02 12/28/19 08:02 12/28/19 08:02 Intake & Output 12/27/19 12/28/19 12/29/19 06:59 06:59 06:59 Intake Total 840 711 Output Total 9074 923 Balance -1160 -139 Weight 74.6 kg 74.6 kg General appearance: PRESENT: no acute distress, cooperative, well-developed Head exam: PRESENT: atraumatic Eye exam: PRESENT: PERRLA Mouth exam: PRESENT: moist, tongue midline Teeth exam: PRESENT: poor dentation Neck exam: ABSENT: carotid bruit, JVD, lymphadenopathy, thyromegaly Respiratory exam: PRESENT: decreased breath sounds Cardiovascular exam: PRESENT: tachycardia GI/Abdominal exam: PRESENT: normal bowel sounds, soft. ABSENT: distended, guarding, mass, organolmegaly, rebound, tenderness Rectal exam: PRESENT: deferred Extremities exam: PRESENT: full ROM. ABSENT: calf tenderness, clubbing, pedal edema Neurological exam: PRESENT: alert, awake, oriented to person, oriented to place, oriented to time, oriented to situation, CN II-XII grossly intact. ABSENT: motor sensory deficit Results Laboratory Results: 12/27/19 05:45 12/27/19 05:45 Impressions: Ankle X-Ray 12/21/19 00:00 IMPRESSION: IMAGE(S) OBTAINED DURING PROCEDURE. Chest X-Ray 12/23/19 00:00 IMPRESSION: No significant interval change. No acute cardiopulmonary disease. Healed granulomatous disease and hyperinflated lungs which can be seen with obstructive lung disease. Assessment and Plan - Diagnosis (1) Closed fracture of left distal fibula Qualifiers: Encounter type: initial encounter Fracture morphology: other fracture Qualified Code(s): S82.832A - Other fracture of upper and lower end of left fibula, initial encounter for closed fracture Is this a current diagnosis for this admission?: Yes Plan: Orthopedic surgery consulted Imaging reviewed Pain management Surgical correction plan 12/20 DVT prophylaxis 12/21/2021 Underwent surgery overnight on 12/20, no reported complications Pain management continues, mostly controlled on current regimen, added Flexeril from home meds as well as celecoxib Very likely will need SNF placement at discharge, physical therapy working with him Orthopedic surgery following 12/24/2019 Pain very well controlled on scheduled low-dose Percocet, continue 12/25/2019 Plan to change narcotics to as needed in the next 24 to 48 hours. Patient should be able to request pain medicine when he needs it 12/26/2019 Percocet decreased to 5 mg every 6 hours. Nonweightbearing x4 to 6 weeks. Continue PT/OT services. Discharge planning consulted for disposition. Stable for discharge once placement made. Discussed with the patient's daughter recommendations that she allow us to send referral to multiple facilities at the same time to expedite process. 12/27/2019-patient with left lower leg boot not in distress comfortable in bed 12/28/19-patient admitted for fall with a left lateral malleolus fracture status post open reduction internal fixation has lower leg boot. Left lower leg boot. Waiting for placement. (2) Acute metabolic encephalopathy Is this a current diagnosis for this admission?: Yes Plan: Occurred on 12/22 Multifactorial: Likely underlying dementia, hospital delirium, acute urinary retention, recent anesthesia UA does not show infection Chest x-ray Smith catheter for bladder decompression Scheduled Percocet for untreated pain as patient cannot request narcotics due to delirium, hold for respiratory depression/sedation/sleeping Mittens placed for patient's protection and to avoid pulling of lines and Smith 12/24/2019 Significant improvement from yesterday with all the above in interventions instituted, out of restraints and fully alert and oriented x4. Continue pain management and Smith catheter 12/25/2019 Per patient, he has had damage to his skull/brain when he had a fall with a brain bleed years ago. This may explain his higher than average susceptibility to delirium on metabolic encephalopathy. On exam, there is a visible healed dent on the superior aspect of his skull on the right Continues to improve daily, states she is having less hallucinations but still having a few episodes each day. Pain management, bladder decompression, started Flomax yesterday as his daughter states he has a chronically enlarged prostate that is untreated until now 12/26/2019 Currently alert and oriented to person, place, situation. Noted to be quite fatigued. Daughter has asked that we decrease his pain medication regiment. Continue supportive care. Monitor for reoccurrence of urinary retention. 12/27/19-elderly male comfortably in the bed cooperative requesting to speak to his family members. He is aware that he is going to a custodial facility at this time. 12/28/19-patient alert awake communicating well. Complaining of occasional hallucinations. Started on the Celexa 20 mg p.o. daily for depression yesterday. (3) Acute urinary retention Is this a current diagnosis for this admission?: Yes Plan: Smith catheter placed Positive bladder scan UA does not show infection 12/24/2019 Per my discussion with his daughter, she states he has had problems with his prostate being too large in the past but she does not remember him having any urinary retention Start Flomax Continue Smith Needs follow-up with urology 12/25/2019 Can try a void trial tomorrow, if he fails he should be discharged with a Smith catheter and follow-up with a urologist within 1 week Continue Flomax 12/26/2019 Smith discontinued. Monitor for urinary retention. Continue Flomax. D8 20-patient denies any problems with urination. Smith's catheter is removed 48 hours ago. (4) Arthritis Is this a current diagnosis for this admission?: Yes Plan: Pain management (5) Hypertension Qualifiers: Hypertension type: essential hypertension Qualified Code(s): I10 - Essential (primary) hypertension Is this a current diagnosis for this admission?: No Plan: Resume home dose Vasotec. 12/27/2019-patient blood pressure today is 145/68. Stable. Plan is to continue vasotec at this time. - Time Anticipated Discharge Disposition: [facility] Anticipated Discharge Timeframe: within 48 hours
[2019-12-28] MEDS: ENALAPRIL MALEATE 10 MG TABLET PO SCH (09:45)
[2019-12-28] MEDS: CELECOXIB 200 MG CAPSULE PO SCH ×2 (10:19→21:20)
[2019-12-28] MEDS: MESALAMINE 400 MG CAPSULE.DR PO SCH (10:19)
[2019-12-28] MEDS: OXYBUTYNIN CHLORIDE 5 MG TABLET PO SCH ×2 (10:19→21:20)
[2019-12-28] MEDS: HYDROCORTISONE ACETATE 25 MG SUPP.RECT PR SCH (10:26)
[2019-12-28] MEDS: TAMSULOSIN HCL 0.4 MG CAP.SR.24H PO SCH (17:10)
[2019-12-28] MEDS: SIMVASTATIN 40 MG TABLET PO SCH (21:20)
[2019-12-28] MEDS: CITALOPRAM HYDROBROMIDE 20 MG TABLET PO SCH (21:20)
[2019-12-29] MEDS: PANTOPRAZOLE SODIUM 40 MG TABLET.DR PO SCH (05:17)
[2019-12-29 08:24] LABS: ABSOLUTE EOSINOPHILS # (AUTO) 0.2 10^3/uL (0.0-0.6); ABSOLUTE LYMPHOCYTES (AUTO) 1.4 10^3/uL (0.5-4.7); ABSOLUTE MONOCYTES (AUTO) 0.4 10^3/uL (0.1-1.4); ABSOLUTE NEUT (AUTO) 3.8 10^3/uL (1.7-8.2); BASOPHILS % (AUTO) 0.8 % (0-2); EOSINOPHILS % (AUTO) 3.4 % (0-6); HEMATOCRIT 39.1 % (37.9-51.0); LYMPHOCYTES % (AUTO) 24.1 % (13-45); MEAN CORPUSCULAR HEMOGLOBIN 29.2 pg (27.0-33.4); MEAN CORPUSCULAR HGB CONC 33.2 g/dL (32.0-36.0); MEAN CORPUSCULAR VOLUME 88 fl (80-97); PLATELET COUNT 177 10^3/uL (150-450); RED BLOOD COUNT 4.45 10^6/uL (4.35-5.55); RED CELL DISTRIBUTION WIDTH 14.6 % (11.5-14.0); SEGMENTED NEUTROPHILS % (AUTO) 64.7 % (42-78); TOTAL CELLS COUNTED % (AUTO) 100 %; WHITE BLOOD COUNT 5.8 10^3/uL (4.0-10.5)
[2019-12-29 08:33] LABS: ALBUMIN 3.9 g/dL (3.5-5.0); ALKALINE PHOSPHATASE 69 U/L (38-126); ANION GAP 6 (5-19); ASPARTATE AMINO TRANSFERASE 28 U/L (17-59); BILIRUBIN,DIRECT 0.3 mg/dL (0.0-0.4); BILIRUBIN,TOTAL 0.8 mg/dL (0.2-1.3); BLOOD UREA NITROGEN 26 mg/dL (7-20); CALCIUM 8.8 mg/dL (8.4-10.2); CARBON DIOXIDE 30 mmol/L (22-30); CHLORIDE 99 mmol/L (98-107); GLUCOSE 94 mg/dL (75-110); POTASSIUM 4.5 mmol/L (3.6-5.0)
[2019-12-29] MEDS: CELECOXIB 200 MG CAPSULE PO SCH ×2 (09:46→21:29)
[2019-12-29] MEDS: OXYBUTYNIN CHLORIDE 5 MG TABLET PO SCH ×2 (09:46→21:29)
[2019-12-29] MEDS: MESALAMINE 400 MG CAPSULE.DR PO SCH (09:46)
[2019-12-29] MEDS: ENALAPRIL MALEATE 10 MG TABLET PO SCH (09:46)
[2019-12-29] MEDS: HYDROCORTISONE ACETATE 25 MG SUPP.RECT PR SCH (09:47)
--- NOTE | 2019-12-29 10:09 | PDOC PROGRESS REPORT ---
Subjective Progress Note for:: 12/29/19 Subjective:: 84 year old male who presents the emergency room via EMS with a 1 day history of left ankle pain. He admits that while getting up out of his lift chair, yesterday, he lost his balance and fell, immediately experiencing severe sharp pain in his left ankle worsened by movement and attempted weightbearing. The pain has been constant since the injury and is nonradiating. He denies other associated or accompanying signs and symptoms. He denies prior similar episo kenyon. He has not identified any additional aggravating or ameliorating factors for his left ankle pain. In the emergency room he was found to have a spiral fracture of the distal left fibula with minimal displacement. Dr. Felipe was consulted for orthopedic surgery by the emergency room provider and asked that the patient be admitted by the hospitalist service for his evaluation and treatment on a consultation basis. Patient was subsequently admitted to the hospital for further evaluation treatment. 12/[id number]-qswk-old male came to the emergency room with complaints of left ankle pain, found to have displaced fracture of the left lateral malleolus status post open reduction internal fixation of the left displaced lateral malleolus fracture was done. Patient is waiting for placement at this time. No acute events in the last 24 hours afebrile. 12/28/2019-no acute events in the last 24 hours. Afebrile. He was admitted for a displaced fracture of the left lateral malleolus status post open reduction internal fixation. Waiting for bed placement. 12/29/1950-40-djqr-old male admitted for left ankle fracture status post surgery. Has a boot. Waiting for placement. Reason For Visit: FALL AT HOME,LEFT FIBULA FRACTURE Physical Exam Vital Signs: Temp Pulse Resp BP Pulse Ox 97.4 F 74 18 133/73 H 95 12/29/19 08:36 12/29/19 07:55 12/29/19 07:55 12/29/19 07:55 12/29/19 07:55 Intake & Output 12/28/19 12/29/19 12/30/19 06:59 06:59 06:59 Intake Total 711 640 Output Total 850 1050 Balance -139 -410 Weight 74.6 kg 73.6 kg General appearance: PRESENT: no acute distress, cooperative, well-developed Head exam: PRESENT: atraumatic Eye exam: PRESENT: PERRLA Ear exam: PRESENT: normal external ear exam Mouth exam: PRESENT: neck supple Teeth exam: PRESENT: poor dentation Neck exam: ABSENT: carotid bruit, JVD, lymphadenopathy, thyromegaly Respiratory exam: PRESENT: decreased breath sounds Cardiovascular exam: PRESENT: RRR. ABSENT: diastolic murmur, rubs, systolic murmur Pulses: PRESENT: normal dorsalis pedis pul GI/Abdominal exam: PRESENT: normal bowel sounds, soft. ABSENT: distended, guarding, mass, organolmegaly, rebound, tenderness Rectal exam: PRESENT: deferred Extremities exam: PRESENT: full ROM. ABSENT: calf tenderness, clubbing, pedal edema Neurological exam: PRESENT: alert, awake, oriented to person, oriented to place, oriented to time, oriented to situation, CN II-XII grossly intact. ABSENT: motor sensory deficit Psychiatric exam: PRESENT: appropriate affect, normal mood. ABSENT: homicidal ideation, suicidal ideation Results Laboratory Results: 12/29/19 08:00 12/29/19 08:00 12/29/19 12/29/19 08:00 08:00 WBC 5.8 RBC 4.45 Hgb 13.0 L Hct 39.1 MCV 88 MCH 29.2 MCHC 33.2 RDW 14.6 H Plt Count 177 Seg Neutrophils % 64.7 Sodium 135.2 L Potassium 4.5 Chloride 99 Carbon Dioxide 30 Anion Gap 6 BUN 26 H Creatinine 0.67 Est GFR ( Amer) > 60 Glucose 94 Calcium 8.8 Magnesium 2.1 Total Bilirubin 0.8 AST 28 Alkaline Phosphatase 69 Total Protein 7.0 Albumin 3.9 Impressions: Ankle X-Ray 12/21/19 00:00 IMPRESSION: IMAGE(S) OBTAINED DURING PROCEDURE. Chest X-Ray 12/23/19 00:00 IMPRESSION: No significant interval change. No acute cardiopulmonary disease. Healed granulomatous disease and hyperinflated lungs which can be seen with obstructive lung disease. Assessment and Plan - Diagnosis (1) Closed fracture of left distal fibula Qualifiers: Encounter type: initial encounter Fracture morphology: other fracture Qualified Code(s): S82.832A - Other fracture of upper and lower end of left fibula, initial encounter for closed fracture Is this a current diagnosis for this admission?: Yes Plan: Orthopedic surgery consulted Imaging reviewed Pain management Surgical correction plan 12/20 DVT prophylaxis 12/21/2021 Underwent surgery overnight on 12/20, no reported complications Pain management continues, mostly controlled on current regimen, added Flexeril from home meds as well as celecoxib Very likely will need SNF placement at discharge, physical therapy working with him Orthopedic surgery following 12/24/2019 Pain very well controlled on scheduled low-dose Percocet, continue 12/25/2019 Plan to change narcotics to as needed in the next 24 to 48 hours. Patient should be able to request pain medicine when he needs it 12/26/2019 Percocet decreased to 5 mg every 6 hours. Nonweightbearing x4 to 6 weeks. Continue PT/OT services. Discharge planning consulted for disposition. Stable for discharge once placement made. Discussed with the patient's daughter recommendations that she allow us to send referral to multiple facilities at the same time to expedite process. 12/27/2019-patient with left lower leg boot not in distress comfortable in bed 12/28/19-patient admitted for fall with a left lateral malleolus fracture status post open reduction internal fixation has lower leg boot. Left lower leg boot. Waiting for placement. 12/29/19-patient is waiting for placement. (2) Acute metabolic encephalopathy Is this a current diagnosis for this admission?: Yes Plan: Occurred on 12/22 Multifactorial: Likely underlying dementia, hospital delirium, acute urinary retention, recent anesthesia UA does not show infection Chest x-ray Smith catheter for bladder decompression Scheduled Percocet for untreated pain as patient cannot request narcotics due to delirium, hold for respiratory depression/sedation/sleeping Mittens placed for patient's protection and to avoid pulling of lines and Smith 12/24/2019 Significant improvement from yesterday with all the above in interventions instituted, out of restraints and fully alert and oriented x4. Continue pain management and Smith catheter 12/25/2019 Per patient, he has had damage to his skull/brain when he had a fall with a brain bleed years ago. This may explain his higher than average susceptibility to delirium on metabolic encephalopathy. On exam, there is a visible healed dent on the superior aspect of his skull on the right Continues to improve daily, states she is having less hallucinations but still having a few episodes each day. Pain management, bladder decompression, started Flomax yesterday as his daughter states he has a chronically enlarged prostate that is untreated until now 12/26/2019 Currently alert and oriented to person, place, situation. Noted to be quite fatigued. Daughter has asked that we decrease his pain medication regiment. Continue supportive care. Monitor for reoccurrence of urinary retention. 12/27/19-elderly male comfortably in the bed cooperative requesting to speak to his family members. He is aware that he is going to a detention facility at this time. 12/28/19-patient alert awake communicating well. Complaining of occasional hallucinations. Started on the Celexa 20 mg p.o. daily for depression y ester. 12/29/2019-comfortably in the bed communicating well. More alert more awake compared to yesterday. (3) Acute urinary retention Is this a current diagnosis for this admission?: Yes Plan: Smith catheter placed Positive bladder scan UA does not show infection 12/24/2019 Per my discussion with his daughter, she states he has had problems with his prostate being too large in the past but she does not remember him having any urinary retention Start Flomax Continue Smith Needs follow-up with urology 12/25/2019 Can try a void trial tomorrow, if he fails he should be discharged with a Smith catheter and follow-up with a urologist within 1 week Continue Flomax 12/26/2019 Smith discontinued. Monitor for urinary retention. Continue Flomax. patient denies any problems with urination. Smith's catheter is removed 48 hours ago. (4) Arthritis Is this a current diagnosis for this admission?: Yes Plan: Pain management (5) Hypertension Qualifiers: Hypertension type: essential hypertension Qualified Code(s): I10 - Essential (primary) hypertension Is this a current diagnosis for this admission?: No Plan: Resume home dose Vasotec. 12/27/2019-patient blood pressure today is 145/68. Stable. Plan is to continue vasotec at this time. - Time Anticipated Discharge Disposition: [facility] Facility Anticipated Discharge Timeframe: within 48 hours
[2019-12-29] MEDS: TAMSULOSIN HCL 0.4 MG CAP.SR.24H PO SCH (17:29)
[2019-12-29] MEDS: SIMVASTATIN 40 MG TABLET PO SCH (21:29)
[2019-12-29] MEDS: CITALOPRAM HYDROBROMIDE 20 MG TABLET PO SCH (21:30)
[2019-12-29] MEDS: CYCLOBENZAPRINE HCL 10 MG TABLET PO PRN (21:41)
[2019-12-30] MEDS: PANTOPRAZOLE SODIUM 40 MG TABLET.DR PO SCH (05:28)
[2019-12-30] MEDS: ENALAPRIL MALEATE 10 MG TABLET PO SCH (10:49)
[2019-12-30] MEDS: OXYBUTYNIN CHLORIDE 5 MG TABLET PO SCH ×2 (10:49→21:48)
[2019-12-30] MEDS: MESALAMINE 400 MG CAPSULE.DR PO SCH (10:50)
[2019-12-30] MEDS: CELECOXIB 200 MG CAPSULE PO SCH ×2 (10:50→21:48)
[2019-12-30] MEDS: HYDROCORTISONE ACETATE 25 MG SUPP.RECT PR SCH (10:51)
--- NOTE | 2019-12-30 11:08 | PDOC PROGRESS REPORT ---
Subjective Progress Note for:: 12/30/19 Subjective:: 84 year old male who presents the emergency room via EMS with a 1 day history of left ankle pain. He admits that while getting up out of his lift chair, yesterday, he lost his balance and fell, immediately experiencing severe sharp pain in his left ankle worsened by movement and attempted weightbearing. The pain has been constant since the injury and is nonradiating. He denies other associated or accompanying signs and symptoms. He denies prior similar episo kenyon. He has not identified any additional aggravating or ameliorating factors for his left ankle pain. In the emergency room he was found to have a spiral fracture of the distal left fibula with minimal displacement. Dr. Felipe was consulted for orthopedic surgery by the emergency room provider and asked that the patient be admitted by the hospitalist service for his evaluation and treatment on a consultation basis. Patient was subsequently admitted to the hospital for further evaluation treatment. 12/27/[id number]-wnbg-old male came to the emergency room with complaints of left ankle pain, found to have displaced fracture of the left lateral malleolus status post open reduction internal fixation of the left displaced lateral malleolus fracture was done. Patient is waiting for placement at this time. No acute events in the last 24 hours afebrile. 12/28/2019-no acute events in the last 24 hours. Afebrile. He was admitted for a displaced fracture of the left lateral malleolus status post open reduction internal fixation. Waiting for bed placement. [birth year]/29/1973-34-zvyz-old male admitted for left ankle fracture status post surgery. Has a boot. Waiting for placement. 12/29-patient is comfortable in the recliner communicating well. No acute events in the last 24 hours. Waiting for placement. Reason For Visit: FALL AT HOME,LEFT FIBULA FRACTURE Physical Exam Vital Signs: Temp Pulse Resp BP Pulse Ox 97.5 F 72 22 H 125/63 95 12/30/19 08:34 12/30/19 08:08 12/30/19 08:08 12/30/19 08:08 12/30/19 08:08 Intake & Output 12/29/19 12/30/19 12/31/19 06:59 06:59 06:59 Intake Total 640 796 Output Total 1050 800 Balance -410 -4 Weight 73.6 kg 73.6 kg General appearance: PRESENT: no acute distress, cooperative, well-developed Head exam: PRESENT: atraumatic Eye exam: PRESENT: PERRLA Mouth exam: PRESENT: moist, tongue midline Neck exam: ABSENT: carotid bruit, JVD, lymphadenopathy, thyromegaly Respiratory exam: PRESENT: decreased breath sounds Cardiovascular exam: PRESENT: RRR. ABSENT: diastolic murmur, rubs, systolic murmur GI/Abdominal exam: PRESENT: normal bowel sounds, soft. ABSENT: distended, guarding, mass, organolmegaly, rebound, tenderness Rectal exam: PRESENT: deferred Extremities exam: PRESENT: full ROM, other - Left lower leg with the boot present.. ABSENT: calf tenderness, clubbing, pedal edema Neurological exam: PRESENT: alert, awake, oriented to person, oriented to place, oriented to time, oriented to situation, CN II-XII grossly intact. ABSENT: motor sensory deficit Psychiatric exam: PRESENT: appropriate affect, normal mood. ABSENT: homicidal ideation, suicidal ideation Results Laboratory Results: 12/29/19 08:00 12/29/19 08:00 Impressions: Ankle X-Ray 12/21/19 00:00 IMPRESSION: IMAGE(S) OBTAINED DURING PROCEDURE. Chest X-Ray 12/23/19 00:00 IMPRESSION: No significant interval change. No acute cardiopulmonary disease. Healed granulomatous disease and hyperinflated lungs which can be seen with obstructive lung disease. Assessment and Plan - Diagnosis (1) Closed fracture of left distal fibula Qualifiers: Encounter type: initial encounter Fracture morphology: other fracture Qualified Code(s): S82.832A - Other fracture of upper and lower end of left fibula, initial encounter for closed fracture Is this a current diagnosis for this admission?: Yes Plan: Orthopedic surgery consulted Imaging reviewed Pain management Surgical correction plan 12/20 DVT prophylaxis 12/21/2021 Underwent surgery overnight on 12/20, no reported complications Pain management continues, mostly controlled on current regimen, added Flexeril from home meds as well as celecoxib Very likely will need SNF placement at discharge, physical therapy working with him Orthopedic surgery following 12/24/2019 Pain very well controlled on scheduled low-dose Percocet, continue 12/25/2019 Plan to change narcotics to as needed in the next 24 to 48 hours. Patient should be able to request pain medicine when he needs it 12/26/2019 Percocet decreased to 5 mg every 6 hours. Nonweightbearing x4 to 6 weeks. Continue PT/OT services. Discharge planning consulted for disposition. Stable for discharge once placement made. Discussed with the patient's daughter recommendations that she allow us to send referral to multiple facilities at the same time to expedite process. 12/27/2019-patient with left lower leg boot not in distress comfortable in bed 12/28/19-patient admitted for fall with a left lateral malleolus fracture status post open reduction internal fixation has lower leg boot. Left lower leg boot. Waiting for placement. 12/29/19-patient is waiting for placement. 12/30/2019-physical therapy is working with the patient. At the time of my examination patient is comfortable in the recliner communicating well. waiting for short-term rehab placement. (2) Acute metabolic encephalopathy Is this a current diagnosis for this admission?: Yes Plan: Occurred on 12/22 Multifactorial: Likely underlying dementia, hospital delirium, acute urinary retention, recent anesthesia UA does not show infection Chest x-ray Smith catheter for bladder decompression Scheduled Percocet for untreated pain as patient cannot request narcotics due to delirium, hold for respiratory depression/sedation/sleeping Mittens placed for patient's protection and to avoid pulling of lines and Smith 12/24/2019 Significant improvement from yesterday with all the above in interventions instituted, out of restraints and fully alert and oriented x4. Continue pain management and Smith catheter 12/25/2019 Per patient, he has had damage to his skull/brain when he had a fall with a brain bleed years ago. This may explain his higher than average susceptibility to delirium on metabolic encephalopathy. On exam, there is a visible healed dent on the superior aspect of his skull on the right Continues to improve daily, states she is having less hallucinations but still having a few episodes each day. Pain management, bladder decompression, started Flomax yesterday as his daughter states he has a chronically enlarged prostate that is untreated until now 12/26/2019 Currently alert and oriented to person, place, situation. Noted to be quite fatigued. Daughter has asked that we decrease his pain medication regiment. Continue supportive care. Monitor for reoccurrence of urinary retention. 12/27/19-elderly male comfortably in the bed cooperative requesting to speak to his family members. He is aware that he is going to a [place] [facility] facility at this time. 12/28/19-patient alert awake communicating well. Complaining of occasional hallucinations. Started on the Celexa 20 mg p.o. daily for depression yesterday. 12/29/2019-comfortably in the bed communicating well. More alert more awake compared to yesterday. (3) Acute urinary retention Is this a current diagnosis for this admission?: Yes Plan: Smith catheter placed Positive bladder scan UA does not show infection 12/24/2019 Per my discussion with his daughter, she states he has had problems with his prostate being too large in the past but she does not remember him having any urinary retention Start Flomax Continue Smith Needs follow-up with urology 12/25/2019 Can try a void trial tomorrow, if he fails he should be discharged with a Smith catheter and follow-up with a urologist within 1 week Continue Flomax 12/26/2019 Smith discontinued. Monitor for urinary retention. Continue Flomax. patient denies any problems with urination. Smith's catheter is removed 48 hours ago. (4) Arthritis Is this a current diagnosis for this admission?: Yes Plan: Pain management (5) Hypertension Qualifiers: Hypertension type: essential hypertension Qualified Code(s): I10 - Es sential (primary) hypertension Is this a current diagnosis for this admission?: No Plan: Resume home dose Vasotec. 12/27/2019-patient blood pressure today is 145/68. Stable. Plan is to continue vasotec at this time. 12/30/19-blood pressure is 116/60. Stable. - Time Anticipated Discharge Disposition: [facility] Facility Anticipated Discharge Timeframe: within 48 hours
[2019-12-30] MEDS: TAMSULOSIN HCL 0.4 MG CAP.SR.24H PO SCH (18:40)
[2019-12-30] MEDS: CITALOPRAM HYDROBROMIDE 20 MG TABLET PO SCH (21:48)
[2019-12-30] MEDS: SIMVASTATIN 40 MG TABLET PO SCH (21:48)
[2019-12-30] MEDS: CYCLOBENZAPRINE HCL 10 MG TABLET PO PRN (21:53)
[2019-12-31] MEDS: PANTOPRAZOLE SODIUM 40 MG TABLET.DR PO SCH (06:24)
[2019-12-31 08:57] LABS: ABSOLUTE EOSINOPHILS # (AUTO) 0.2 10^3/uL (0.0-0.6); ABSOLUTE LYMPHOCYTES (AUTO) 1.5 10^3/uL (0.5-4.7); ABSOLUTE MONOCYTES (AUTO) 0.5 10^3/uL (0.1-1.4); ABSOLUTE NEUT (AUTO) 3.1 10^3/uL (1.7-8.2); BASOPHILS % (AUTO) 0.7 % (0-2); EOSINOPHILS % (AUTO) 3.1 % (0-6); HEMATOCRIT 38.9 % (37.9-51.0); HEMOGLOBIN 13.2 g/dL (13.5-17.0); LYMPHOCYTES % (AUTO) 28.1 % (13-45); MEAN CORPUSCULAR HEMOGLOBIN 29.6 pg (27.0-33.4); MEAN CORPUSCULAR HGB CONC 33.9 g/dL (32.0-36.0); MEAN CORPUSCULAR VOLUME 87 fl (80-97); MONOCYTES % (AUTO) 9.1 % (3-13); PLATELET COUNT 165 10^3/uL (150-450); RED BLOOD COUNT 4.46 10^6/uL (4.35-5.55); RED CELL DISTRIBUTION WIDTH 14.3 % (11.5-14.0); TOTAL CELLS COUNTED % (AUTO) 100 %; WHITE BLOOD COUNT 5.2 10^3/uL (4.0-10.5)
[2019-12-31 09:16] LABS: ALBUMIN 3.8 g/dL (3.5-5.0); ALKALINE PHOSPHATASE 71 U/L (38-126); ANION GAP 9 (5-19); ASPARTATE AMINO TRANSFERASE 25 U/L (17-59); BILIRUBIN,DIRECT 0.3 mg/dL (0.0-0.4); BILIRUBIN,TOTAL 0.6 mg/dL (0.2-1.3); BLOOD UREA NITROGEN 26 mg/dL (7-20); CALCIUM 8.8 mg/dL (8.4-10.2); CARBON DIOXIDE 27 mmol/L (22-30); CHLORIDE 98 mmol/L (98-107); GLUCOSE 100 mg/dL (75-110); TOTAL PROTEIN 6.7 g/dL (6.3-8.2)
--- NOTE | 2019-12-31 09:51 | PDOC PROGRESS REPORT ---
Subjective Progress Note for:: 12/31/19 Subjective:: 84 year old male who presents the emergency room via EMS with a 1 day history of left ankle pain. He admits that while getting up out of his lift chair, yesterday, he lost his balance and fell, immediately experiencing severe sharp pain in his left ankle worsened by movement and attempted weightbearing. The pain has been constant since the injury and is nonradiating. He denies other associated or accompanying signs and symptoms. He denies prior similar episo kenyon. He has not identified any additional aggravating or ameliorating factors for his left ankle pain. In the emergency room he was found to have a spiral fracture of the distal left fibula with minimal displacement. Dr. Felipe was consulted for orthopedic surgery by the emergency room provider and asked that the patient be admitted by the hospitalist service for his evaluation and treatment on a consultation basis. Patient was subsequently admitted to the hospital for further evaluation treatment. 12/[id number]-oaax-old male came to the emergency room with complaints of left ankle pain, found to have displaced fracture of the left lateral malleolus status post open reduction internal fixation of the left displaced lateral malleolus fracture was done. Patient is waiting for placement at this time. No acute events in the last 24 hours afebrile. 12/28/2019-no acute events in the last 24 hours. Afebrile. He was admitted for a displaced fracture of the left lateral malleolus status post open reduction internal fixation. Waiting for bed placement. 12/29/1960-25-deiy-old male admitted for left ankle fracture status post surgery. Has a boot. Waiting for placement. 12/29-patient is comfortable in the recliner communicating well. No acute events in the last 24 hours. Waiting for placement. 12/31/2019-patient is participating with physical therapy today. Alert awake communicating well. Waiting for bed placement. Reason For Visit: FALL AT HOME,LEFT FIBULA FRACTURE Physical Exam Vital Signs: Temp Pulse Resp BP Pulse Ox 97.8 F 75 20 119/57 L 96 12/31/19 08:37 12/31/19 07:15 12/31/19 07:15 12/31/19 07:15 12/31/19 07:15 Intake & Output 12/30/19 12/31/19 01/01/20 06:59 06:59 06:59 Intake Total 796 465 125 Output Total 800 1725 Balance -4 -1260 125 Weight 73.6 kg 72.3 kg General appearance: PRESENT: no acute distress, cooperative, well-developed Head exam: PRESENT: atraumatic Eye exam: PRESENT: PERRLA Mouth exam: PRESENT: moist, tongue midline Teeth exam: PRESENT: poor dentation Neck exam: ABSENT: carotid bruit, JVD, lymphadenopathy, thyromegaly Respiratory exam: PRESENT: decreased breath sounds Cardiovascular exam: PRESENT: RRR. ABSENT: diastolic murmur, rubs, systolic murmur GI/Abdominal exam: PRESENT: normal bowel sounds, soft. ABSENT: distended, guarding, mass, organolmegaly, rebound, tenderness Rectal exam: PRESENT: deferred Extremities exam: PRESENT: full ROM, other - Patient has a left lower leg boot present.. ABSENT: calf tenderness, clubbing, pedal edema Neurological exam: PRESENT: alert, awake, oriented to person, oriented to place, oriented to time, oriented to situation, CN II-XII grossly intact. ABSENT: motor sensory deficit Psychiatric exam: PRESENT: appropriate affect, normal mood. ABSENT: homicidal ideation, suicidal ideation Results Laboratory Results: 12/31/19 08:38 12/31/19 08:38 12/31/19 12/31/19 08:38 08:38 WBC 5.2 RBC 4.46 Hgb 13.2 L Hct 38.9 MCV 87 MCH 29.6 MCHC 33.9 RDW 14.3 H Plt Count 165 Seg Neutrophils % 59.0 Sodium 133.5 L Potassium 5.0 Chloride 98 Carbon Dioxide 27 Anion Gap 9 BUN 26 H Creatinine 0.69 Est GFR ( Amer) > 60 Glucose 100 Calcium 8.8 Magnesium 2.2 Total Bilirubin 0.6 AST 25 Alkaline Phosphatase 71 Total Protein 6.7 Albumin 3.8 Impressions: Ankle X-Ray 12/21/19 00:00 IMPRESSION: IMAGE(S) OBTAINED DURING PROCEDURE. Chest X-Ray 12/23/19 00:00 IMPRESSION: No significant interval change. No acute cardiopulmonary disease. Healed granulomatous disease and hyperinflated lungs which can be seen with obstructive lung disease. Assessment and Plan - Diagnosis (1) Closed fracture of left distal fibula Qualifiers: Encounter type: initial encounter Fracture morphology: other fracture Qualified Code(s): S82.832A - Other fracture of upper and lower end of left fibula, initial encounter for closed fracture Is this a current diagnosis for this admission?: Yes Plan: Orthopedic surgery consulted Imaging reviewed Pain management Surgical correction plan 12/20 DVT prophylaxis 12/21/2021 Underwent surgery overnight on 12/20, no reported complications Pain management continues, mostly controlled on current regimen, added Flexeril from home meds as well as celecoxib Very likely will need SNF placement at discharge, physical therapy working with him Orthopedic surgery following 12/24/2019 Pain very well controlled on scheduled low-dose Percocet, continue 12/25/2019 Plan to change narcotics to as needed in the next 24 to 48 hours. Patient should be able to request pain medicine when he needs it 12/26/2019 Percocet decreased to 5 mg every 6 hours. Nonweightbearing x4 to 6 weeks. Continue PT/OT services. Discharge planning consulted for disposition. Stable for discharge once place ment made. Discussed with the patient's daughter recommendations that she allow us to send referral to multiple facilities at the same time to expedite process. 12/27/2019-patient with left lower leg boot not in distress comfortable in bed 12/28/19-patient admitted for fall with a left lateral malleolus fracture status post open reduction internal fixation has lower leg boot. Left lower leg boot. Waiting for placement. 12/29/19-patient is waiting for placement. 12/30/2019-physical therapy is working with the patient. At the time of my examination patient is comfortable in the recliner communicating well. waiting for short-term rehab placement. 12/31/2019-physical therapy is working with the patient. Alert awake communicating well. Plan is to discharge him to short-term care facility. (2) Acute metabolic encephalopathy Is this a current diagnosis for this admission?: Yes Plan: Occurred on 12/22 Multifactorial: Likely underlying dementia, hospital delirium, acute urinary retention, recent anesthesia UA does not show infection Chest x-ray Smith catheter for bladder decompression Scheduled Percocet for untreated pain as patient cannot request narcotics due to delirium, hold for respiratory depression/sedation/sleeping Mittens placed for patient's protection and to avoid pulling of lines and Smith 12/24/2019 Significant improvement from yesterday with all the above in interventions instituted, out of restraints and fully alert and oriented x4. Continue pain management and Smith catheter 12/25/2019 Per patient, he has had damage to his skull/brain when he had a fall with a brain bleed years ago. This may explain his higher than average susceptibility to delirium on metabolic encephalopathy. On exam, there is a visible healed dent on the superior aspect of his skull on the right Continues to improve daily, states she is having less hallucinations but still having a few episodes each day. Pain management, bladder decompression, started Flomax yesterday as his daughter states he has a chronically enlarged prostate that is untreated until now 12/26/2019 Currently alert and oriented to person, place, situation. Noted to be quite fatigued. Daughter has asked that we decrease his pain medication regiment. Continue supportive care. Monitor for reoccurrence of urinary retention. 12/27/19-elderly male comfortably in the bed cooperative requesting to speak to his family members. He is aware that he is going to a correction facility at this time. 12/28/19-patient alert awake communicating well. Complaining of occasional hallucinations. Started on the Celexa 20 mg p.o. daily for depression yesterday. 12/29/2019-comfortably in the bed communicating well. More alert more awake compared to yesterday. 12/31/2019-patient is alert and awake oriented participating with physical therapy. (3) Acute urinary retention Is this a current diagnosis for this admission?: Yes Plan: Smith catheter placed Positive bladder scan UA does not show infection 12/24/2019 Per my discussion with his daughter, she states he has had problems with his prostate being too large in the past but she does not remember him having any urinary retention Start Flomax Continue Smith Needs follow-up with urology 12/25/2019 Can try a void trial tomorrow, if he fails he should be discharged with a Smith catheter and follow-up with a urologist within 1 week Continue Flomax 12/26/2019 Smith discontinued. Monitor for urinary retention. Continue Flomax. patient denies any problems with urination. Smith's catheter is removed 48 hours ago. (4) Arthritis Is this a current diagnosis for this admission?: Yes Plan: Pain management (5) Hypertension Qualifiers: Hypertension type: essential hypertension Qualified Code(s): I10 - Essential (primary) hypertension Is this a current diagnosis for this admission?: No Plan: Resume home dose Vasotec. 12/27/2019-patient blood pressure today is 145/68. Stable. Plan is to continue vasotec at this time. 12/30/19-blood pressure is 116/60. Stable. 12/31/2019-patient blood pressure today is 113/60. Stable. - Time Anticipated Discharge Disposition: [facility] Facility Anticipated Discharge Timeframe: within 48 hours
[2019-12-31] MEDS: ENALAPRIL MALEATE 10 MG TABLET PO SCH (11:42)
[2019-12-31] MEDS: MESALAMINE 400 MG CAPSULE.DR PO SCH (11:42)
[2019-12-31] MEDS: HYDROCORTISONE ACETATE 25 MG SUPP.RECT PR SCH (11:44)
[2019-12-31] MEDS: OXYBUTYNIN CHLORIDE 5 MG TABLET PO SCH ×2 (11:44→21:33)
[2019-12-31] MEDS: CELECOXIB 200 MG CAPSULE PO SCH ×2 (11:44→21:32)
[2019-12-31] MEDS: TAMSULOSIN HCL 0.4 MG CAP.SR.24H PO SCH (17:50)
[2019-12-31] MEDS: CITALOPRAM HYDROBROMIDE 20 MG TABLET PO SCH (21:33)
[2019-12-31] MEDS: SIMVASTATIN 40 MG TABLET PO SCH (21:33)
[2019-12-31] MEDS: CYCLOBENZAPRINE HCL 10 MG TABLET PO PRN (21:44)
[2020-01-01] MEDS: PANTOPRAZOLE SODIUM 40 MG TABLET.DR PO SCH (06:20)
[2020-01-01] MEDS ORDERED: ENALAPRIL MALEATE 10 MG TABLET PO SCH (10:00)
[2020-01-01] MEDS: OXYBUTYNIN CHLORIDE 5 MG TABLET PO SCH (11:40)
[2020-01-01] MEDS: CELECOXIB 200 MG CAPSULE PO SCH (11:40)
[2020-01-01] MEDS: MESALAMINE 400 MG CAPSULE.DR PO SCH (11:41)
[2020-01-01] MEDS: HYDROCORTISONE ACETATE 25 MG SUPP.RECT PR SCH (11:41)
--- NOTE | 2020-01-01 13:57 | PDOC TRANSFER SUMMARY ---
Impression - Admit/DC Date/PCP Admission Date/Primary Care Provider: 12/20/19 20:22 ALFIE HAN MD Discharge Date: 01/01/20 - Discharge Diagnosis (1) Closed fracture of left distal fibula Is this a current diagnosis for this admission?: Yes (2) Acute metabolic encephalopathy Is this a current diagnosis for this admission?: Yes (3) Acute urinary retention Is this a current diagnosis for this admission?: Yes (4) Arthritis Is this a current diagnosis for this admission?: Yes (5) Gastroesophageal reflux disease Is this a current diagnosis for this admission?: Yes (6) Hyperlipidemia Is this a current diagnosis for this admission?: Yes (7) Hypertension Is this a current diagnosis for this admission?: No (8) Paresis Is this a current diagnosis for this admission?: Yes - Additional Information Resuscitation Status: Full Code Discharge Diet: As Tolerated, Regular Discharge Activity: Activity As Tolerated, Balance Activity w/Rest Referrals: KVNG FELIPE MD [ACTIVE STAFF] - Home Medications: Cyclobenzaprine HCl 5 mg PO HSP PRN 06/15/15 Mesalamine [Lialda] 2.4 gm PO DAILY 06/15/15 Omeprazole 40 mg PO DAILY 06/15/15 Simvastatin 40 mg PO QHS 06/15/15 Celecoxib [Celebrex 200 mg Capsule] 200 mg PO Q12 12/20/19 Tadalafil [Cialis] 5 mg PO QHS 12/20/19 Acetaminophen [Tylenol 325 mg Tablet] 650 mg PO Q4HP PRN tablet 01/01/20 Bisacodyl [Dulcolax 10 mg Supp.rect] 10 mg MO DAILYP PRN supp.rect 01/01/20 Bisacodyl [Dulcolax 5 mg Tablet] 5 mg PO DAILYP PRN tabec 01/01/20 Enalapril Maleate [Vasotec 10 mg Tablet] 5 mg PO DAILY #0 01/01/20 Oxybutynin Chloride [Oxybutynin Chloride ER] 5 mg PO Q12 #0 01/01/20 Tamsulosin HCl [Flomax 0.4 mg Cap.sr] 0.4 mg PO PCSUPPER cap.sr.24h 01/01/20 History of Present Illiness History of Present Illness: Per Admitting Physician: "WEI BURNS is a 84 year old male who presents the emergency room via EMS with a 1 day history of left ankle pain. He admits that while getting up out of his lift chair, yesterday, he lost his balance and fell, immediately experiencing severe sharp pain in his left ankle worsened by movement and attempted weightbearing. The pain has been constant since the injury and is nonradiating. He denies other associated or accompanying signs and symptoms. He denies prior similar episodes. He has not identified any additional aggravat ing or ameliorating factors for his left ankle pain. In the emergency room he was found to have a spiral fracture of the distal left fibula with minimal displacement. Dr. Felipe was consulted for orthopedic surgery by the emergency room provider and asked that the patient be admitted by the hospitalist service for his evaluation and treatment on a consultation basis. Patient was subsequently admitted to the hospital for further evaluation treatment." Hospital Course Hospital Course: 84 year old male who presents the emergency room via EMS with a 1 day history of left ankle pain. He admits that while getting up out of his lift chair, yesterday, he lost his balance and fell, immediately experiencing severe sharp pain in his left ankle worsened by movement and attempted weightbearing. The pain has been constant since the injury and is nonradiating. He denies other associated or accompanying signs and symptoms. He denies prior similar episo kenyon. He has not identified any additional aggravating or ameliorating factors for his left ankle pain. In the emergency room he was found to have a spiral fracture of the distal left fibula with minimal displacement. Dr. Felipe was consulted for orthopedic surgery by the emergency room provider and asked that the patient be admitted by the hospitalist service for his evaluation and treatment on a consultation basis. Patient was subsequently admitted to the hospital for further evaluation treatment. 12/22/2019 Per patient and surgery documentation, surgery went well. Patient having some muscle spasms in his legs and asking for his home dose of Flexeril which I have ordered. I have also added back some additional home medications that he was taking before. Labs today are pending. Patient is working with physical therapy and he will very likely need SNF according to orthopedic surgery. Patient has no new complaints. 12/23/2019 Ordered some additional tests as patient is delirious today. I suspect he has underlying dementia which is being made acutely worse by an array of acute factors including recent anesthesia, possible hospital delirium, possible untreated pain, possible pneumonia though this is unlikely as he has clear lungs on exam, acute urinary retention. He does not have a UTI according to his UA results. Acute urinary retention certainly can and does cause acute delirium in postop patients. Smith catheter has been placed and this may correct his delirium over the next 24 to 48 hours. I also added scheduled Percocet every 12 hours as the patient cannot request pain medication and on exam he does state his leg hurts severely when I palpate it lightly. Hold narcotics for sedation/respiratory depression or if he is sleeping. We will get a portable chest x-ray to rule out pneumonia. May put him in mittens to keep him from pulling out his IV and Smith catheter. Not articulate any specific complaints today other than his left leg hurts. 12/24/2019 Patient seems to have turned a corner after the above interventions were instituted since yesterday. He is very calm and speaks very clearly today. He is not combative at all and he has had his restraints removed. He is alert and oriented x4. He does note he is having some intermittent mild hallucinations but these are diminishing with time. Overall very significant improvement from yesterday. Labs and vitals reviewed knees appear to be stable now. He has no new complaints today. I had a long discussion with his daughter yesterday and she would like him to go to a rehab facility. Patient is in agreement with this reluctantly. 12/25/2019 Patient is still doing quite well and is very calm today. He is alert and oriented x4 except he does not know the exact day of the month. He is very talkative today and tells many stories about his past. Case management is working on getting him placement at a nursing facility per his daughter's request. Patient is still having some mild pain in his left lower extremity but it is well controlled on the current regimen. In the next few days, would be good to change his narcotics to as needed given he is now able to request pain medication when he needs it. He has no new complaints today. 12/27/[id number]-old male came to the emergency room with complaints of left ankle pain, found to have displaced fracture of the left lateral malleolus status post open reduction internal fixation of the left displaced lateral malleolus fracture was done. Patient is waiting for placement at this time. No acute events in the last 24 hours afebrile. 12/28/2019-no acute events in the last 24 hours. Afebrile. He was admitted for a displaced fracture of the left lateral malleolus status post open reduction internal fixation. Waiting for bed placement. 12/29/[id number]-old male admitted for left ankle fracture status post surgery. Has a boot. Waiting for placement. 12/29-patient is comfortable in the recliner communicating well. No acute events in the last 24 hours. Waiting for placement. 12/31/2019-patient is participating with physical therapy today. Alert awake communicating well. Waiting for bed placement. Patient accepted to [facility], patient family in agreement with disposition. Patient discharged in good condition. (1) Closed fracture of left distal fibula Qualifiers: Encounter type: initial encounter Fracture morphology: other fracture Qualified Code(s): S82.832A - Other fracture of upper and lower end of left fibula, initial encounter for closed fracture Is this a current diagnosis for this admission?: Yes Plan: Orthopedic surgery consulted Imaging reviewed Pain management Surgical correction plan 12/20 DVT prophylaxis 12/21/2021 Underwent surgery overnight on 12/20, no reported complications Pain management continues, mostly controlled on current regimen, added Flexeril from home meds as well as celecoxib Very likely will need SNF placement at discharge, physical therapy working with him Orthopedic surgery following 12/24/2019 Pain very well controlled on scheduled low-dose Percocet, continue 12/25/2019 Plan to change narcotics to as needed in the next 24 to 48 hours. Patient should be able to request pain medicine when he needs it Discharged to SNF for continued rehab (2) Acute metabolic encephalopathy resolved Is this a current diagnosis for this admission?: Yes Plan: Occurred on 12/22 Multifactorial: Likely underlying dementia, hospital delirium, acute urinary retention, recent anesthesia UA does not show infection Chest x-ray Smith catheter for bladder decompression Scheduled Percocet for untreated pain as patient cannot request narcotics due to delirium, hold for respiratory depression/sedation/sleeping Mittens placed for patient's protection and to avoid pulling of lines and Smith 12/24/2019 Significant improvement from yesterday with all the above in interventions instituted, out of restraints and fully alert and oriented x4. Continue pain management and Smith catheter 12/25/2019 Per patient, he has had damage to his skull/brain when he had a fall with a brain bleed years ago. This may explain his higher than average susceptibility to delirium on metabolic encephalopathy. On exam, there is a visible healed dent on the superior aspect of his skull on the right Continues to improve daily, states she is having less hallucinations but still having a few episodes each day. Pain management, bladder decompression, started Flomax yesterday as his daughter states he has a chronically enlarged prostate that is untreated until now Resolved (3) Acute urinary retention resolved Is this a current diagnosis for this admission?: Yes Plan: Smith catheter placed Positive bladder scan UA does not show infection 12/24/2019 Per my discussion with his daughter, she states he has had problems with his prostate being too large in the past but she does not remember him having any urinary retention Start Flomax Continue Smith Needs follow-up with urology 12/25/2019 Can try a void trial tomorrow, if he fails he should be discharged with a Smith catheter and follow-up with a urologist within 1 week Continue Flomax Resolved (4) Arthritis Is this a current diagnosis for this admission?: Yes (5) Gastroesophageal reflux disease Qualifiers: Esophagitis presence: esophagitis presence not specified Qualified Code(s): K21.9 - Gastro-esophageal reflux disease without esophagitis Is this a current diagnosis for this admission?: Yes (6) Hyperlipidemia Qualifiers: Hyperlipidemia type: unspecified Qualified Code(s): E78.5 - Hyperlipidemia, unspecified Is this a current diagnosis for this admission?: Yes (7) Hypertension Qualifiers: Hypertension type: essential hypertension Qualified Code(s): I10 - Essential (primary) hypertension Is this a current diagnosis for this admission?: Yes (8) Paresis Is this a current diagnosis for this admission?: Yes Physical Exam Vital Signs: Temp Pulse Resp BP Pulse Ox 97.3 F 74 20 132/67 H 99 01/01/20 11:49 01/01/20 11:49 01/01/20 11:49 01/01/20 11:49 01/01/20 11:49 Intake & Output 12/31/19 01/01/20 01/02/20 06:59 06:59 06:59 Intake Total 465 1085 Output Total 1725 1400 Balance -1260 -315 Weight 72.3 kg 73.2 kg Exam: General appearance: PRESENT: well-developed, well-nourished, states he feels well and agrees with discharge to [facility] Head exam: PRESENT: atraumatic, normocephalic Eye exam: PRESENT: conjunctiva pink Mouth exam: PRESENT: moist Respiratory exam: PRESENT: clear to auscultation annika. ABSENT: rales, rhonchi, wheezes GI/Abdominal exam: PRESENT: normal bowel sounds, soft. ABSENT: distended, guarding, mass, organolmegaly, rebound, tenderness Extremities exam: PRESENT: tenderness - Left lower extremity mild to moderately tender, mild edema Neurological exam: PRESENT: alert, awake. ABSENT: oriented to person, oriented to place, oriented to time, oriented to situation Psychiatric exam: PRESENT: agitated Skin exam: PRESENT: dry, warm Results Laboratory Results: WBC 5.2 10^3/uL (4.0-10.5) 12/31/19 08:38 RBC 4.46 10^6/uL (4.35-5.55) 12/31/19 08:38 Hgb 13.2 g/dL (13.5-17.0) L 12/31/19 08:38 Hct 38.9 % (37.9-51.0) 12/31/19 08:38 MCV 87 fl (80-97) 12/31/19 08:38 MCH 29.6 pg (27.0-33.4) 12/31/19 08:38 MCHC 33.9 g/dL (32.0-36.0) 12/31/19 08:38 RDW 14.3 % (11.5-14.0) H 12/31/19 08:38 Plt Count 165 10^3/uL (150-450) 12/31/19 08:38 Lymph % (Auto) 28.1 % (13-45) 12/31/19 08:38 Garza % (Auto) 9.1 % (3-13) 12/31/19 08:38 Eos % (Auto) 3.1 % (0-6) 12/31/19 08:38 Baso % (Auto) 0.7 % (0-2) 12/31/19 08:38 Absolute Neuts (auto) 3.1 10^3/uL (1.7-8.2) 12/31/19 08:38 Absolute Lymphs (auto) 1.5 10^3/uL (0.5-4.7) 12/31/19 08:38 Absolute Monos (auto) 0.5 10^3/uL (0.1-1.4) 12/31/19 08:38 Absolute Eos (auto) 0.2 10^3/uL (0.0-0.6) 12/31/19 08:38 Absolute Basos (auto) 0.0 10^3/uL (0.0-0.2) 12/31/19 08:38 Seg Neutrophils % 59.0 % (42-78) 12/31/19 08:38 Sodium 133.5 mmol/L (137-145) L 12/31/19 08:38 Potassium 5.0 mmol/L (3.6-5.0) 12/31/19 08:38 Chloride 98 mmol/L (98-107) 12/31/19 08:38 Carbon Dioxide 27 mmol/L (22-30) 12/31/19 08:38 Anion Gap 9 (5-19) 12/31/19 08:38 BUN 26 mg/dL (7-20) H 12/31/19 08:38 Creatinine 0.69 mg/dL (0.52-1.25) 12/31/19 08:38 Est GFR ( Amer) > 60 (>60) 12/31/19 08:38 Est GFR (MDRD) Non-Af > 60 (>60) 12/31/19 08:38 Glucose 100 mg/dL (75-110) 12/31/19 08:38 POC Glucose 130 mg/dL (70-110) H 01/01/20 10:55 Calcium 8.8 mg/dL (8.4-10.2) 12/31/19 08:38 Magnesium 2.2 mg/dL (1.6-2.3) 12/31/19 08:38 Total Bilirubin 0.6 mg/dL (0.2-1.3) 12/31/19 08:38 Direct Bilirubin 0.3 mg/dL (0.0-0.4) 12/31/19 08:38 Neonat Total Bilirubin Not Reportable 12/31/19 08:38 Neonat Direct Bilirubin Not Reportable 12/31/19 08:38 Neonat Indirect Bili Not Reportable 12/31/19 08:38 AST 25 U/L (17-59) 12/31/19 08:38 ALT 15 U/L (<50) 12/31/19 08:38 Alkaline Phosphatase 71 U/L (38-126) 12/31/19 08:38 Total Protein 6.7 g/dL (6.3-8.2) 12/31/19 08:38 Albumin 3.8 g/dL (3.5-5.0) 12/31/19 08:38 Triglycerides 55 mg/dL (<150) 12/21/19 05:21 Cholesterol 126.73 mg/dL (0-200) 12/21/19 05:21 LDL Cholesterol Direct 58 mg/dL (<100) 12/21/19 05:21 VLDL Cholesterol 11.0 mg/dL (10-31) 12/21/19 05:21 HDL Cholesterol 54 mg/dL (>40) 12/21/19 05:21 TSH 1.62 uIU/mL (0.47-4.68) 12/21/19 05:21 Urine Color YELLOW 12/23/19 13:35 Urine Appearance CLEAR 12/23/19 13:35 Urine pH 5.0 (5.0-9.0) 12/23/19 13:35 Ur Specific [place] 1.013 12/23/19 13:35 Urine Protein NEGATIVE mg/dL (NEGATIVE) 12/23/19 13:35 Urine Glucose (UA) NEGATIVE mg/dL (NEGATIVE) 12/23/19 13:35 Urine Ketones NEGATIVE mg/dL (NEGATIVE) 12/23/19 13:35 Urine Blood SMALL (NEGATIVE) H 12/23/19 13:35 Urine Nitrite (Reflex) NEGATIVE (NEGATIVE) 12/23/19 13:35 Urine Bilirubin NEGATIVE (NEGATIVE) 12/23/19 13:35 Urine Urobilinogen NEGATIVE mg/dL (<2.0) 12/23/19 13:35 Leukocyte Esterase Rfl NEGATIVE (NEGATIVE) 12/23/19 13:35 Urine RBC (Auto) 1 /HPF 12/23/19 13:35 Urine WBC (Reflex) 1 /HPF 12/23/19 13:35 Urine Mucus (Auto) RARE /LPF 12/23/19 13:35 Urine Ascorbic Acid NEGATIVE (NEGATIVE) 12/23/19 13:35 SARS-CoV-2 (PCR) NEGATIVE (NEGATIVE) 12/21/19 07:10 Impressions: Ankle X-Ray 12/20/19 00:00 IMPRESSION: Fracture distal fibula. Chest X-Ray 12/20/19 19:25 IMPRESSION: No change in appearance since 2012. No acute findings. Ankle X-Ray 12/21/19 00:00 IMPRESSION: IMAGE(S) OBTAINED DURING PROCEDURE. Chest X-Ray 12/23/19 00:00 IMPRESSION: No significant interval change. No acute cardiopulmonary disease. Healed granulomatous disease and hyperinflated lungs which can be seen with obstructive lung disease. Plan Plan of Treatment: Follow-up with PCP Follow-up with orthopedic surgery Rehab Time Spent: Greater than 30 Minutes Stroke Is this a Stroke Patient?: No Acute Heart Failure - Is this a Heart Failure Patient?: No
[2020-01-01 17:09] VITALS: BP 118/62
[2020-01-01] MEDS: TAMSULOSIN HCL 0.4 MG CAP.SR.24H PO SCH (17:11)
== END 2020-01-01 18:54 | DRG 492 ==
LOC: ER 18:05 → EH 20:22 → OBSVTOIN 20:22 → 4N 21:40
PROVIDERS: ADMIT Emergency Medicine; ATTEND Internal Medicine
PROC: 0QSK04Z Reposition Left Fibula with Internal Fixation Device, Open Approach (ICD-10-PCS; principal; 2019-12-19)
DX: S82.832A Other fracture of upper and lower end of left fibula, initial encounter for closed fracture (principal); G93.41 Metabolic encephalopathy; W01.0XXA Fall on same level from slipping, tripping and stumbling without subsequent striking against object, initial encounter; Y92.009 Unspecified place in unspecified non-institutional (private) residence as the place of occurrence of the external cause; Z78.1 Physical restraint status; R33.9 Retention of urine, unspecified; K21.9 Gastro-esophageal reflux disease without esophagitis; E78.5 Hyperlipidemia, unspecified; I10 Essential (primary) hypertension; G83.9 Paralytic syndrome, unspecified; M19.90 Unspecified osteoarthritis, unspecified site; F03.90 Unspecified dementia, unspecified severity, without behavioral disturbance, psychotic disturbance, mood disturbance, and anxiety; R41.0 Disorientation, unspecified; E78.00 Pure hypercholesterolemia, unspecified; Z11.59 Encounter for screening for other viral diseases; Z79.899 Other long term (current) drug therapy; Z86.73 Personal history of transient ischemic attack (TIA), and cerebral infarction without residual deficits; Z85.828 Personal history of other malignant neoplasm of skin; Z98.1 Arthrodesis status; Z87.891 Personal history of nicotine dependence; Z87.820 Personal history of traumatic brain injury; Z82.49 Family history of ischemic heart disease and other diseases of the circulatory system; Z80.9 Family history of malignant neoplasm, unspecified; Z88.2 Allergy status to sulfonamides
CPT/HCPCS: 01480; 36415; 71045; 80048; 80053; 80061; 81001; 82962; 83735; 84443; 85025; 85027; 87635; 93005; 93010; 99285; C1713; C9803; J0690; J1100; J1644; J2060; J2250; J2270; J2405; J2704; J2795; J3010; J3490; J7060; J7120; J7121; L4386; S0028